=== PATIENT | female | born 1945 | race Caucasian/White ===

== ENCOUNTER → 2016-10-16 | Outpatient (CLI) | payer OTHER ==
[~2016-10-16] VITALS: Ht 172.7 cm; Wt 93.9 kg
[~2016-10-16] MED LIST: B-100 COMPLEX1 EAC1 PO; BENICAR HCT 201 EACH PO; COZAAR 25MG TAB25 MG PO; CYMBALTA PO; CYMBALTA20 MG; DILAUDID 4 MG TA4 M1 PO; ESTRACE0.5 MG PO; FEMRING1 EAC1 VG; FENTANYL PA12 MCG/H1 TP; FENTANYL PA12 MCG/HR TP; FENTANYL PA25 MCG/HR TP; FENTANYL PA50 MCG/HR TP; GABAPENTIN100 MG PO; GLUCOPHAGE1000 MG PO; LIPITOR 20 MG T20 M1; LIPITOR40 MG PO; LOVASTATIN; MULTI-VITAMIN1 EAC5 PO; NEURONTIN 300300 M1 PO; NEURONTIN600 MG PO; NORTRIPTYLINE H10 M1 PO; NORVASC5 MG PO; SIMVASTATIN40 MG PO; XANAX 0.5 MG0.5 MG PO
--- NOTE | ~2016-10-16 | HPC ---
[facility] [place] [address] PAIN MANAGEMENT CONSULTATION Name: SANDRITA RVIAS Room #: REG CHARLY FinneganKayleeAngelicaKaylee#: [id number] Admission: 10/16/16 Attend Phys: Jess Matthews MD Discharge: Date of : 46 Report #: [id number] THIS REPORT FOR: //name// CC: MELISSA Matthews LASHA COLEYWhit DATE OF SERVICE: 10/16/2016 CHIEF COMPLAINT: Pain is improved since the last surgery. FOLLOWUP HISTORY: The patient is a 71-year-old female who has been followed in the pain clinic because of chronic pain involving her lower extremities. She has had surgery to her right ankle. She has had chronic pain in this area since 1993. She has been reluctant to have surgery in the past. Now that the surgery is complete, she feels like her pain is improving. She rates it as a 1/10. She is having less problems with sleeping and activities of daily living. She did note that she stepped on it somewhat appropriate sleep and noted some increasing pain a few days ago. Overall, things are going better. At this juncture she would like to continue with her current pain medication. She will consider decreasing and weaning off the medication as she progresses. She would like to continue with the fentanyl patches 37.5 mcg q. 48 hours and with hydromorphone 4 mg p.o. q.i.d. as needed. PHYSICAL EXAMINATION: GENERAL: The patient appears quite happy. This is a significant improvement over previous visits. She feels some of the anxiety from the surgery has lessened. She rates her pain as a 1/10. She is in a wheelchair. She has a cast on the right ankle. She states that overall things are going reasonably well and she is unable to place much weight on it. VITAL SIGNS: Blood pressure 108/74, pulse 98, respiratory rate 20, room air saturation is 98%. The patient has not fallen since we saw her last. She is doing very well on her current medical regimen. IMPRESSION: Chronic foot pain, recent surgery on the right foot with a cast in place. RECOMMENDATIONS: We will continue with the patient's current medical regimen of fentanyl 37 mcg q.48 hours. Also, a script for Dilaudid 1 p.o. q.i.d. has been written. She will call us if she has any problems. We will see her within the next [address] [address] PAIN MANAGEMENT CONSULTATION Name: SANDRITA RIVAS Room #: REG CL Adriana#: [id number] Admission: 10/16/16 Attend Phys: Jess Matthews MD Discharge: Date of : 46 Report #: [id number] We would like to thank you for letting us participate in her care. We hope she continues to improve. <ELECTRONICALLY SIGNED> By: Jess Matthews MD 11/17/16 1018 [id number] [id number] Jess Matthews MD /matt
[2016-10-16 10:22] VITALS: BP 108/74
== END ==
LOC: PAIN 07:14
DX: M79.671 Pain in right foot (principal); I10 Essential (primary) hypertension; F17.210 Nicotine dependence, cigarettes, uncomplicated

== ENCOUNTER → 2017-01-06 | Outpatient (CLI) | payer OTHER ==
[~2017-01-06] VITALS: Ht 172.7 cm; Wt 102.8 kg
[~2017-01-06] MED LIST changes: +AMARYL2 MG PO; +CATAPRES0.2 M1 PO
--- NOTE | ~2017-01-06 | HPC ---
[facility] [place] [address] [place] [address] PAIN MANAGEMENT CONSULTATION Name: SANDRITA RIVAS Room #: REG CHARLY ViatlKaylee#: [id number] Admission: 01/06/17 Attend Phys: Jess Matthews MD Discharge: Date of : 46 Report #: [id number] THIS REPORT FOR: //name// CC: Bennie Pena MD The patient was seen on 01/06/[address] Vish Matthews. FOLLOWUP COMPLAINT: Here for medication renewal, the pain is about 3. FOLLOWUP HISTORY: The patient is a 71-year-old female who has been followed in the pain clinic as you recall. She suffers from chronic pain involving her lower extremities. She is still healing from her last surgery involving the foot. She continues to wear a walkin boot. She feels that her medications continue to be better. We have discussed decreasing her medications at the last visit. She is to anticipating decrease in her medications. She has some concerns over the use of our opioid medications. She is hoping that she does not go into withdrawal. PHYSICAL EXAMINATION: VITAL SIGNS: Blood pressure is 118/67, pulse 110. Respiratory rate 16, room air saturation 97%. EXTREMITIES: The patient has her right foot and walking cast with it elevated. She indicates that the pain is improving. She does experience some lancinating pains at time. She experienced at a couple of times while we were undergoing our interview. She mentally feels and looks better. She has some concerns still regarding possibility of withdrawal. Blood pressure 118/67, pulse 110, respiratory rate 16, room air saturation 97%. Height 5 feet 8 inches. Weight 102 kilograms. BMI is 34. The patient has a boot on the right foot, which is elevated. IMPRESSION: Chronic foot pain. Recent surgery on the right foot with a boot in place. RECOMMENDATIONS: We discussed treatment options with the patient. We will decrease her opioid medications slowly over the next months. We will decrease her opioid dose by 12 mcg. This will provide her with 27 mcg q. 48 hours. She will also continue with Dilaudid 1 p.o. q.i.d. p.r.n. as needed. She has been given a script for clonidine pills. 0.2 mg tablets have been dispensed. She will take 1 daily. Hopefully, these will help and lessen the chance that she would go and experience some withdrawal symptoms. She is already on medications for her blood pressure. She will decrease the amlodipine, should her blood pressure become too low. She will call us if she has any problems with her medications. [address] [address] PAIN MANAGEMENT CONSULTATION Name: SANDRITA RIVAS Room #: REG Chirag Wright#: [id number] Admission: 01/06/17 Attend Phys: Jess Matthews MD Discharge: Date of : 46 Report #: [id number] We would like to thank you for letting us participate in her care. We hope she continues to improve. By: 1341 1501 Jess Matthews MD /matt
[2017-01-06 09:55] VITALS: BP 118/67
== END ==
LOC: PAIN 07:33
DX: G89.29 Other chronic pain (principal); F17.200 Nicotine dependence, unspecified, uncomplicated

== ENCOUNTER → 2017-02-19 | Outpatient (CLI) | payer OTHER ==
[~2017-02-19] VITALS: Ht 172.7 cm; Wt 89.8 kg
--- NOTE | ~2017-02-19 | HPC ---
[facility] [place] [address] [address] PAIN MANAGEMENT CONSULTATION Name: SANDRITA RIVAS Room #: REG CHARLY FinneganKayleeAngelicaKaylee#: [id number] Admission: 02/19/17 Attend Phys: Jess Matthews MD Discharge: Date of : 46 Report #: [id number] THIS REPORT FOR: //name// CC: Bennie Matthews LASHA COLEYWhit DATE OF SERVICE: 02/19/2017 CHIEF FOLLOWUP COMPLAINT: My has leukemia. FOLLOWUP HISTORY: The patient is a 71-year-old female who has been followed in the pain clinic because of pain in her lower extremities. She has had a number of foot surgeries. She continues to wear boot on the right foot. She feels overall that things continue to improve. She has decreased her [place] usage by 12 mcg over the last 3 months. She has not had any significant withdrawal problems as a result of that. She feels that things continue to improve. She is quite troubled because of her 's new onset of acute leukemia. She states that he is undergoing treatment. He has lost some kidney function and is being placed on dialysis at this juncture. He has been in the hospital for over a month. PHYSICAL EXAMINATION: The patient is somewhat tearful. Her [id number]-[id number] is with her. She has pain in both feet. Right ankle as well as some low back discomfort. Rates her pain overall as a 2/10. She notes walking, standing can exacerbate her discomfort. Rest feet are beneficial. She has not fallen since we saw her last. Keeps her medications in a guarded area. Blood pressure 141/78, pulse 93, respiratory rate 16, room air saturation is 94%. She does feel somewhat clinically depressed. IMPRESSION: 1. Right foot pain, improving, but still in a boot. She is scheduled to see Dr. Pena in the near future. 2. has developed acute leukemia with anemia and is in [facility] undergoing treatment. He has been placed on dialysis secondary to kidney failure. RECOMMENDATIONS: We will continue with her opioid medications at they current level. 25 mcg q. 48 hours and Dilaudid 4 mg 1 p.o. q. 4-6 hours p.r.n. pain. She will call us if she has any problems with her medications. Hopefully, her continues to improve. By: 1157 [id number] Jess Matthews MD /nt
[2017-02-19 10:41] VITALS: BP 141/78
== END ==
LOC: PAIN 07:06
DX: M25.571 Pain in right ankle and joints of right foot (principal); I10 Essential (primary) hypertension; F17.200 Nicotine dependence, unspecified, uncomplicated; Z88.5 Allergy status to narcotic agent

== ENCOUNTER → 2017-04-16 | Outpatient (CLI) | payer OTHER ==
[~2017-04-16] VITALS: Ht 172.7 cm; Wt 99.4 kg
--- NOTE | ~2017-04-16 | HPC ---
[facility] [place] [address] PAIN MANAGEMENT CONSULTATION Name: SANDRITA RIVAS Room #: REG CHARLY VitalKaylee#: [id number] Admission: 04/16/17 Attend Phys: Jess Matthews MD Discharge: Date of : 46 Report #: [id number] THIS REPORT FOR: //name// CC: Bennie Pena MD DATE OF SERVICE: 04/16/2017 FOLLOWUP COMPLAINT: The pain is worsened. There is a lot going on in the family. FOLLOWUP HISTORY: The patient is a 71-year-old female who has been followed in the pain clinic because of chronic pain. She has undergone surgeries on her feet. Things were going reasonably well. She found out that her has cancer. He was at and hospitalized. She remained at the hospital many days to be with him. She has noted some worsening of her pain and discomfort. She continues to wear a boot on her right foot. She rates her pain as an 8-9 today. It had been down to 2 at the last visit. She feels that her medications were helpful. She is still quite despondent and concern regarding her 's health crisis. PHYSICAL EXAMINATION: Blood pressure 143/76, pulse 87, respiratory rate 16, room air saturation 98%, height 5 feet 8 inches, weight 99 kg, and BMI is 33. She has pain and discomfort in both feet. Right ankle is problematic as well. She continues to wear a boot. As you recall, she had a right ankle fusion in 2016. IMPRESSION: 1. Chronic foot pain, right foot surgery in 2016, left foot surgery in 2012. 2. Sadden secondary to 's recent finding of malignancy. The patient has undergone bone marrow transplant at . The patient finds fentanyl patch and Dilaudid medications helpful. RECOMMENDATIONS: We will continue with her current medical regimen. She had been decreasing her opioid use. At this juncture, she feels that she should stay at this level. She feels that her pain has worsened secondary to the stress and trauma of her 's findings of cancer. We will continue her current medical regimen. She will call us if she has any problems with her medications. We would like to thank you for letting us participate in her care. We hope she continues to improve. By: [id number] Jess Matthews MD /nt
[2017-04-16 12:49] VITALS: BP 143/76
== END | disposition home or self-care (01) ==
LOC: PAIN 06:55
DX: M25.572 Pain in left ankle and joints of left foot (principal); M25.571 Pain in right ankle and joints of right foot; G89.29 Other chronic pain; Z98.890 Other specified postprocedural states; F17.210 Nicotine dependence, cigarettes, uncomplicated; Z88.2 Allergy status to sulfonamides; Z88.8 Allergy status to other drugs, medicaments and biological substances; Z79.899 Other long term (current) drug therapy

== ENCOUNTER → 2017-07-23 | Outpatient (CLI) | payer OTHER ==
[~2017-07-23] VITALS: Ht 172.7 cm; Wt 98.9 kg
[~2017-07-23] MED LIST changes: +DURAGESIC25 MCG/HR TRANSDERM; +METHADONE HCL 110 M1 PO
--- NOTE | ~2017-07-23 | HPC ---
[facility] [place] [address] PAIN MANAGEMENT CONSULTATION Name: SANDRITA RIVAS Room #: REG [facility] Zahraa.#: [id number] Admission: 07/23/17 Attend Phys: Jess Matthews MD Discharge: Date of : 46 Report #: [id number] THIS REPORT FOR: //name// CC: MELISSA Pena MD DATE OF SERVICE: 07/23/2017 FOLLOWUP COMPLAINT: Pain has gotten significant worse over the last few months. FOLLOWUP HISTORY: The patient is a 72-year-old female who has been seen in the pain clinic and followed because of chronic pain associated with numerous foot surgeries. She feels that her pain has worsened over the last few weeks. She has had some pain, which is so severe. She has been unable to get out of bed. She is feeling better spiritually and mentally and that her 's lymphoma shows a low amount of glass sales. She is contemplating going to [place] with her to see her son who is in . She describes a deep aching pain in her right foot. Pain in the left as well. She has a new port on the left leg. She rates her pain as a 03/20/2017. She is having significant problem walking, standing and engaging in activities of daily living. She has been quite tearful. PHYSICAL EXAMINATION: Blood pressure is 130/83, pulse 95, respiratory rate 16, room air saturation 96%. Height 5 feet 8 inches, weight 218 pounds, BMI is 33. The patient states that she is having tremendous amount of pain involving the right leg as well as the left leg. She had to walk some distance. After walking home, she had pain which was quite problematic. She states that it kept her in bed for 3 days. Her corroborates her complaint and outworked expressions of pain. IMPRESSION: 1. Chronic foot pain, right and left. 2. Left foot surgery, 2012. 3. Right foot surgery, 2015. 4. ____ for . She states that his hospital bill is around 1 million dollars. He has undergone a bone marrow transplant. She feels that the pain continues to be so intense, she is unable to ambulate and participate in activities of daily living. She like to go and see her son in [place]. RECOMMENDATIONS: We discussed treatment options. We would like to increase her fentanyl patch from 25 mcg to 37 mcg. The patient states that they find it difficult to afford it financially given the other medications and bills that they have. We will have the patient start methadone 10 mg 1 p.o. every morning. She will continue with her fentanyl patch 25 mcg [place] [address] PAIN MANAGEMENT CONSULTATION Name: SANDRITA RIVAS Room #: REG CHARLY Wright#: [id number] Admission: 07/23/17 Attend Phys: Jess Matthews MD Discharge: Date of : 46 Report #: [id number] hydromorphone 4 mg 1 p.o. q.8h. p.r.n. pain. We would like to thank you for letting us participate in her care. We hope she continues to improve. Hopefully, she will have a nice vacation with her son. By: [id number] 0343 Jess Matthews MD /PMT
[2017-07-23 10:53] VITALS: BP 130/83
== END | disposition home or self-care (01) ==
LOC: PAIN 06:57
DX: M25.571 Pain in right ankle and joints of right foot (principal); M25.572 Pain in left ankle and joints of left foot; G89.29 Other chronic pain; F17.210 Nicotine dependence, cigarettes, uncomplicated; Z98.890 Other specified postprocedural states; Z88.2 Allergy status to sulfonamides; Z88.6 Allergy status to analgesic agent; Z91.041 Radiographic dye allergy status; Z79.899 Other long term (current) drug therapy

== ENCOUNTER → 2017-10-15 | Outpatient (CLI) | payer OTHER ==
[~2017-10-15] VITALS: Ht 172.7 cm; Wt 100.7 kg
[~2017-10-15] MED LIST changes: -CYMBALTA20 MG; +CYMBALTA30 MG PO; +CYMBALTA60 MG PO; +Duragesic 25 mcg Pat TRANSDERM; +PROTONIX40 M1 PO
--- NOTE | ~2017-10-15 | HPC ---
[facility] [place] [address] PAIN MANAGEMENT CONSULTATION Name: SANDRITA RIVAS Room #: REG CHARLY Adriana#: [id number] Admission: 10/15/17 Attend Phys: Jess Matthews MD Discharge: Date of : 46 Report #: [id number] THIS REPORT FOR: //name// CC: MELISSA Tapia MD DATE OF SERVICE: 10/15/2017 FOLLOWUP COMPLAINT: Things have gone better now that I have started the methadone medication. FOLLOWUP HISTORY: The patient is a 72-year-old female who has been followed in the pain clinic. As you recall, for some time because of chronic pain associated with her legs. She has had numerous surgeries over the years. Overall, things have improved since we saw her last. We increased her methadone medication. She finds that medication has been more helpful. She has found that she does not need many of the hydromorphone tablets. She has only taken a few of them since we saw her last. She saw Dr. Tapia. She states that he injected in her foot in an area in the anterior ankle. Knows that has made a significant improvement in her pain and discomfort as well. She is continuing to wear a bone stimulator on her foot. She states that she has worn out 2 of them, and she is on her third. She is walking better. Overall, she feels better in regards to her condition. She has had no complications from the medications. At some point in the near future, she is thinking about starting to wean off additional pain medication. She feels that this is a possible given that her pain has improved. At this point, she is not sure what we should. Given that the weather is so cold and there is a possibility that her pain could be exacerbated. She will consider it as spring arise. Hopefully, she will have less pain and discomfort as a result of the warmer weather and increased activities. The patient is quite tearful and depressed. States that she has been seen her psychiatrist. Her 's condition is stable at this juncture. He is doing well with his chemotherapy. After asking his doctor how would he feel, if he stopped his chemotherapy. It was told that his cancer would recur quite aggressively and probably result in his demise. The patient was very upset and depressed. It indicates that the chemotherapy cause thousands of dollars each course. The significant cost of his treatment has them wondered how long they can go ahead and continue to pay for this. That is what has been concerning her and causing her to lose sleep at night. ALLERGIES: CODEINE, SULFA, IV DYES. MEDICATIONS: Methadone 10 mg 1 p.o. daily, fentanyl patch 25 mcg every [address] [address] PAIN MANAGEMENT CONSULTATION Name: SANDRITA RIVAS [facility] [id number] Admission: 10/15/17 Attend Phys: Jess Matthews MD Discharge: Date of : 46 Report #: [id number] hours. The patient notes that these medications effectiveness rapidly drops off after 48 hours, hydromorphone 4 mg tablets. The patient is taking them sparingly at this juncture. Has found that the methadone has been quite efficacious. Amaryl 2 mg tablets, gabapentin 300 mg b.i.d., gabapentin 600 mg at bedtime, Cymbalta 20 mg, Cozaar 25 mg, Lipitor 20 mg, Norvasc 5 mg, multivitamins, esterase 0.5 mg, alprazolam 0.5 mg, metformin 1 gram b.i.d. IMPRESSION: 1. Chronic pain involving the right and left foot, treated with complex medical management using opioid therapy. 2. History of left foot surgery in 2012. 3. Right foot surgery 2015. 4. Feeling depressed secondary to 's cancer situation is becoming increasingly more expensive. The concern over being able to continue to pay for his medication is becoming a problem. The patient states that the hospital will not let him just pay a portion of the bill, but that they need to pay significant portions of it as they go along. This has caused her loose sleep. RECOMMENDATIONS: We will continue with her current medical regimen of fentanyl patches 25 mcg per day, methadone 10 mg daily has decreased her need for hydromorphone. The patient will call us if she has any problems with her medications. The good thing about her foot is that she feels that things are going best that they have for quite sometime, but the emotional upset secondary to her 's clinical condition continues to make her quite sad. We would like to thank you for letting us participate in her care. We hope she continues to improve. <ELECTRONICALLY SIGNED> By: Jess Matthews MD 10/20/17 0837 1428 0137 Jess Matthews MD /[facility]
[2017-10-15 10:25] VITALS: BP 137/68
== END ==
LOC: PAIN 06:46
DX: M25.571 Pain in right ankle and joints of right foot (principal); M25.572 Pain in left ankle and joints of left foot; F11.90 Opioid use, unspecified, uncomplicated; F32.9 Major depressive disorder, single episode, unspecified; Z98.890 Other specified postprocedural states

== ENCOUNTER → 2017-12-29 | Outpatient (CLI) | payer OTHER ==
[~2017-12-29] VITALS: Ht 172.7 cm; Wt 102.7 kg
[~2017-12-29] MED LIST changes: -Duragesic 25 mcg Pat TRANSDERM; -PROTONIX40 M1 PO
--- NOTE | ~2017-12-29 | HPC ---
[facility] [place] [address] [address] PAIN MANAGEMENT CONSULTATION Name: SANDRITA RIVAS Room #: REG CHARLY Adriana#: [id number] Admission: 12/29/17 Attend Phys: Jess Matthews MD Discharge: Date of : 46 Report #: [id number] THIS REPORT FOR: //name// CC: MELISSA Tapia MD DATE OF SERVICE: 12/29/2017 FOLLOWUP COMPLAINT: Here for my medications. I am also getting some new orthotics. FOLLOWUP HISTORY: The patient is a 72-year-old female who has been followed in the pain clinic. As you recall, she has significant problems with her feet. She has had foot surgery on both sides. She continues to have some chronic pain associated with this. She feels that her overall pain is more reasonably controlled on her current medications. Feels that the methadone is helpful. Also, finds hydromorphone effective. She continues to be quite concern regarding her 's health. As you recall, he has leukemia. They both are concerned regarding the cost of his treatment. She states that there is about $50,000 for 1 week course of treatment. She is concerned that they will have to spend themselves down to poverty level before he would be able to get her medicare assistance with the payments. She feels that her emotional status is variable. She feels that she will just take things one day at a time. The patient continues to follow up with her psychiatrist. She continues to feel depressed because of her current situation. ALLERGIES CODEINE, SULFA, IV DYES. CURRENT MEDICATIONS: Methadone 10 mg 1 p.o. daily, fentanyl patch 25 mcg q. 48 hours, Amaryl 2 mg tabs, gabapentin 300 mg b.i.d., gabapentin 600 mg at bedtime, Cymbalta 20 mg, Cozaar 25 mg, Lipitor 20 mg, Norvasc 5 mg, multivitamins, Estrace 0.5 mg, alprazolam 0.5 mg, metformin 1 gram b.i.d. PAIN CLINIC ASSESSMENT: 1. History of osteoarthritis, right lower extremity: 2. Height 5 feet 8 inches, weight 226 pounds, BMI is 34. 3. Vital signs: Blood pressure 116/74, pulse 86, respiratory rate 20, room air saturation 95%. 4. Pain intensity 0/10 today. 5. Fall risk. The patient uses a cane. She has not fallen since we saw her last. 6. The patient is [place] [address] PAIN MANAGEMENT CONSULTATION Name: SANDRITA RIVAS Room #: REG [facility]#: [id number] Admission: 12/29/17 Attend Phys: Jess Matthews MD Discharge: Date of : 46 Report #: [id number] 7. Hypertension. The patient is being treated for hypertension. 8. Opioid therapy. The patient has an opioid contract signed with our pain clinic. 9. Risk assessment tool rates 2-3, which is low on a scale. 10. Functional assessment tool. 11. Recreational drugs. The patient denies ever using recreational drugs. 12. Tobacco: The patient is a current everyday smoker. 13. Alcohol. Denies use of alcoholic beverages. PHYSICAL EXAMINATION: GENERAL: The patient is a well-developed, well-nourished female. She appears her stated age. She is alert and oriented x 3, speech is fluent. Affect is slightly depressed. HEENT: Normocephalic, atraumatic. Extraocular eye muscles intact. Nasal passages moist. No nystagmus. Conjunctivae is nonicteric. NECK: Without bruits or adenopathy. CHEST: Regular rate. ABDOMEN: Protuberant. MUSCULOSKELETAL: Upper extremities, muscle strength is judged to be 5/5 for the major muscle groups. Lower extremities 5/5. The patient has a boot on her lower extremity. She feels that this orthotic boot has improved her ability to walk. Has less pain and discomfort than previously. IMPRESSION: 1. Chronic pain involving the right and left foot. The patient is being treated with complex medical management using opioid therapy. 2. History of left foot surgery in 2012. 3. Right foot surgery 2016. 4. The depression secondary to 's leukemia status and $50,000 for each week of treatment. RECOMMENDATIONS: We discussed treatment options with the patient. We will continue with her current medications. She will call us if she has any problems with the gabapentin, Cymbalta, methadone or fentanyl patches. She is aware that long-term use of opioid medications can cause dependence. Overall, she feels that these medications are helpful and are allowing her to be more involved in activities of daily living. <ELECTRONICALLY SIGNED> By: Jess Matthews MD 01/07/18 0825 1303 0033 Jess Matthews MD /[facility]
[2017-12-29 09:42] VITALS: BP 116/74
== END ==
LOC: PAIN 06:40
DX: M79.605 Pain in left leg (principal); M79.604 Pain in right leg; G89.29 Other chronic pain; I10 Essential (primary) hypertension; Z79.891 Long term (current) use of opiate analgesic

== ENCOUNTER → 2018-04-29 | Outpatient (CLI) | payer OTHER ==
[~2018-04-29] VITALS: Ht 172.7 cm; Wt 102.5 kg
[~2018-04-29] MED LIST changes: +PROTONIX40 M1 PO
--- NOTE | ~2018-04-29 | HPC ---
[facility] [place] [address] PAIN MANAGEMENT CONSULTATION Name: SANDRITA RIVAS Room #: REG CHARLY FinneganKayleeAngelicaKaylee#: [id number] Admission: 04/29/18 Attend Phys: Jess Matthews MD Discharge: Date of : 47 Report #: [id number] THIS REPORT FOR: //name// CC: Bennie Pena MD DATE OF SERVICE: 04/29/2018 FOLLOWUP HISTORY: Here for medications. "My pain is still help by the medications, but I am having some curling of my left toes." FOLLOWUP HISTORY: The patient is a 72-year-old female who has been followed in the pain clinic because of chronic pain associated with her feet. She has had a number of surgeries. States that she is scheduled to see Dr. Pena in the near future. Has noted some curling of her toes. She states that she was told that this is secondary to diabetes. She would like to have her medications renewed. She is still somewhat emotional because of her . As you recall, he has cancer. He has been undergoing treatment. The treatment cause for his medications has been extraordinarily high. She states that they will buy his medications on credit card. Soon they will meet their deductible and the remainder of his care for that this year will be covered by his insurance. Overall, things are reasonably stable with his health at this juncture. ALLERGIES: CODEINE, SULFA, IV DYE. MEDICATIONS: Methadone 10 mg 1 p.o. daily, fentanyl patch 25 mcg q. 48 hours, Amaryl 2 mg tabs, gabapentin 300 mg b.i.d., gabapentin 600 mg at bedtime, Cymbalta 20 mg, Cozaar 25 mg, Lipitor 20 mg, Norvasc 5 mg, multivitamin, Estrace 0.5 mg, alprazolam 0.5 mg, metformin 1 gram b.i.d. PAIN CLINIC ASSESSMENT: 1. History of osteoarthritis involving her lower extremities. 2. Height 5 feet 8 inches, weight 226 pounds, BMI is 34.4. 3. Vital signs: Blood pressure 150/80, pulse 104, respiratory rate 18, room air saturation 95%. 4. Pain intensity 12/18. 5. Fall risk: The patient has not fallen in the last 3 months. 6. Blood thinner: The patient is not on the blood thinning medication. 7. History of hypertension: The patient is being treated for hypertension. 8. Opioid therapy greater than 6 weeks. The patient is on an opioid therapy regimen and gets her medication from one source. 9. Risk assessment tool, low risk for 2-3 for use of opioid medications. 10. Functional assessment tool 37/70. 11. Recreational drugs: The patient denies use of recreational drugs. [address] [address] PAIN MANAGEMENT CONSULTATION Name: SANDRITA RIVAS Room #: REG [facility]#: [id number] Admission: 04/29/18 Attend Phys: Jess Matthews MD Discharge: Date of : 47 Report #: [id number] 13. Tobacco: The patient does not smoke cigarettes. 14. Alcohol use: The patient denies frequent use of alcoholic medications. PHYSICAL EXAMINATION: GENERAL: The patient is a well-developed, well-nourished female. She appears her stated age. She is alert and oriented x 3. Speech is fluent. She is with her sister. She seems slightly upbeat today. HEENT: Normocephalic, atraumatic. Extraocular eye muscles intact. Nasal passages are moist without nystagmus. Conjunctiva is nonicteric. NECK: Without bruits or adenopathy. CHEST: Regular rate. ABDOMEN: Protuberant. MUSCULOSKELETAL: Upper extremity muscle strength is judged to be 5/5 for the major muscle groups. Lower extremity is 4/5 because of limitations of pain. The patient does have shoes on today. She has orthotics in place. She does not have a boot on. States that she is having some pain and discomfort involving the left foot. States that there is some bending of her toes and that they are kind of sliding under one another. She feels that this is causing some of the pain and discomfort, which she is experiencing. IMPRESSION: 1. Chronic pain involving her right and left foot. The patient is being treated with complex medical management using opioid therapy. 2. History of left foot surgery in 2012. 3. Right foot surgery 2015. 4. 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 RECOMMENDATIONS: We discussed treatment options with the patient. At this juncture, we will continue with her current medications. She feels that they are helpful. She is trying to continue to use the least amount of opioid medication as possible. She finds that ____ able her to be somewhat active. She is not having any problems with clouding of her sensorium. She is still working hard to continue to take care of her . This has increased her activity level and that has been a portion of why she has noted some increased pain and discomfort. A script for her medications of Dilaudid, fentanyl and methadone were renewed. We would like to thank you for letting us participate in her care. We hope she continues to improve. By: [id number] MD eleni Talbot
[2018-04-29 14:31] VITALS: BP 150/81
== END ==
LOC: PAIN 06:56
DX: M79.672 Pain in left foot (principal); M79.671 Pain in right foot; G89.29 Other chronic pain; Z79.899 Other long term (current) drug therapy

== ENCOUNTER → 2018-07-18 | Outpatient (CLI) | payer OTHER ==
[~2018-07-18] VITALS: Ht 172.7 cm; Wt 100.2 kg
[~2018-07-18] MED LIST changes: +Duragesic 25 mcg Pat TRANSDERM
--- NOTE | ~2018-07-18 | HPC ---
[facility] [place] [address] [address] PAIN MANAGEMENT CONSULTATION Name: SANDRITA RIVAS Room #: REG CHARLY VitalKaylee#: [id number] Admission: 07/18/18 Attend Phys: Jess Matthews MD Discharge: Date of : 47 Report #: [id number] THIS REPORT FOR: //name// CC: Bennie Tapia MD DATE OF SERVICE: 07/18/2018 FOLLOWUP COMPLAINT: The patient said still having some pain in my feet. The patient has right ankle and some low back pain. FOLLOWUP HISTORY: The patient is a 73-year-old female, who has been followed in the pain clinic because of chronic pain. As you recall, she has had numerous surgeries on her feet. She states that she is having some changes in her foot. She may need additional surgery on her left foot because of prominence of bone in the bottom of her feet. She is feeling somewhat relieved given that her has had another checkup. He has been found at this juncture to be in remission. She is quite delighted about this. She feels that her medications are working reasonably well. She states that she overall is feeling that things were all right. She would like to have her medications renewed. CURRENT MEDICATIONS: Methadone 10 mg 1 p.o., fentanyl patch 25 mcg q. 48 hours, Amaryl 2 mg tablets, gabapentin 300 mg b.i.d., gabapentin 600 mg at bedtime, Cymbalta 20 mg, Cozaar 25 mg, Lipitor 20 mg, Norvasc 5 mg, multivitamin, Estrace 0.5 mg, alprazolam 0.5 mg, and metformin 1 g b.i.d. ALLERGIES: THE PATIENT IS ALLERGIC TO CODEINE, SULFA, AND IV DYE. PAIN CLINIC ASSESSMENT AND PQRS: 1. History of osteoarthritis in her right and left lower extremity. 2. Rheumatoid arthritis. The patient is not being treated for rheumatoid arthritis. 3. Pain intensity is 7/10. 4. Fall risk. The patient has not fallen in the last 3 months. 5. Blood thinner. The patient is not on a blood thinning medication. 6. Hypertension. The patient has been treated for hypertension. 7. Opiate therapy greater than 6 weeks. The patient receives her medications from one source, the pain clinic. 8. Risk assessment, low risk 2/3 for opioid use. 9. Functional assessment tool, . 10. Recreational drugs. The patient denies use of recreational drugs. 11. Tobacco. Discussed use of tobacco with the patient. [address] [address] PAIN MANAGEMENT CONSULTATION Name: SANDRITA RIVAS Room #: REG [facility]#: [id number] Admission: 07/18/18 Attend Phys: Jess Matthews MD Discharge: Date of : 47 Report #: [id number] 12. Alcohol: The patient denies use of alcoholic beverages. PHYSICAL EXAMINATION: GENERAL: The patient is a well-developed and well-nourished white female. She appears her stated age. She is alert and oriented x 3. Her affect is upbeat. Height is 5 feet 8 inches, weight is 221 pounds, and BMI is 33.6. VITAL SIGNS: Blood pressure is 143/68, pulse is 101, respiratory rate is 16, room air saturation is 94%, and temperature is 98. HEENT: Normocephalic, atraumatic. Extraocular eye muscles intact. NECK: Without bruits or adenopathy. CHEST: Clear to auscultation. HEART: Regular rate. ABDOMEN: Protuberant. Bowel sounds present. MUSCULOSKELETAL: Without significant scoliosis, kyphosis, or lordosis. Lower extremity strength is judged to be 5/5 in the upper extremity. The patient does have some pain and discomfort in her feet, left and right. She states that there is some pressure on the bottom of her feet secondary to some bone formation. IMPRESSION: 1. Chronic pain involving the right as well as the left foot. The patient is being treated with complex medical management using opioid therapy to help with her pain. 2. History of left foot surgery in 2012. 3. Right foot surgery in 2015. 4. Improved psychological outlook secondary to the patient's leukemia, being in remission. RECOMMENDATIONS: We have discussed treatment options with the patient. We have renewed her medications. She will call us if she has any problems. She feels that her medications overall are helpful. She feels that she is using less of the Dilaudid medications. She states that she has not picked up a script since 03/2018. She will call us if she has any concerns. We would like to thank you for letting us to participate in her care. A script for her medications of methadone 10 mg 1 daily, Dilaudid 4 mg, and Duragesic patch 25 mcg q. 48 hours have been written. <ELECTRONICALLY SIGNED> By: Jess Matthews MD 07/25/18 [id number] Jess Matthews MD /EARLINE
[2018-07-18 08:32] VITALS: BP 143/68
== END ==
LOC: PAIN 06:57
DX: M79.672 Pain in left foot (principal); M79.671 Pain in right foot; G89.29 Other chronic pain; M25.571 Pain in right ankle and joints of right foot; M24.671 Ankylosis, right ankle; F17.210 Nicotine dependence, cigarettes, uncomplicated; M19.071 Primary osteoarthritis, right ankle and foot; Z79.891 Long term (current) use of opiate analgesic; Z79.899 Other long term (current) drug therapy

== ENCOUNTER → 2018-10-21 | Outpatient (CLI) | payer OTHER ==
[~2018-10-21] MED LIST changes: +DURAGESIC1 EAC4 TOP; +DURAGESIC1 EAC4 TRANSDERM
--- NOTE | ~2018-10-21 | HPC ---
[facility] [place] [address] [place] [address] PAIN MANAGEMENT CONSULTATION Name: SANDRITA RIVAS Room #: REG CHARLY FinneganKayleeAngelicaKaylee#: [id number] Admission: 10/21/18 Attend Phys: Jess Matthews MD Discharge: Date of : 47 Report #: [id number] THIS REPORT FOR: //name// CC: Bennie Pena MD DATE OF SERVICE: 10/21/2018 PRIMARY CARE PHYSICIAN: Bennie Stephens MD and Harjeet Pena MD CHIEF COMPLAINT: "I fell at home. I fractured my nose and had lots of pain since that time." HISTORY: The patient is a 73-year-old female who has been followed in the pain clinic for quite a time. As you recall, she has significant problems with her lower extremities. She has had numerous surgeries. States that she fell while carrying an item and walking with her cell phone. She fell and hit the right upper eyebrow area. States that she fractured her nose. Had significant amount of bleeding. She was taken to where she underwent stitching of the wound above her head over her eye. Notes that her pain has worsened today. This has been one of the worst days of the year as far as weather. Threatening snows, threatening changes in temperature. The patient has noted worsening of her pain as a result. She finds that her medications continue to be helpful, but not as helpful as they have been. She is still concerned about her , Vin. At this juncture, he is receiving treatment at [facility] for his cancer. This has really been difficult for her. He recently underwent cancer therapy. He is receiving cancer therapy every 28 days. She feels that with his medications he has had some personality changes. States that he has much less calm. Feels that she is walking on eggshells. Does not feel that she is getting as much family support from the children. Overall, this has caused her to be quite stressed. ALLERGIES: THE PATIENT IS ALLERGIC TO CODEINE, SULFA, IV DYE. CURRENT MEDICATIONS: Methadone 10 mg 1 p.o., fentanyl patches 25 mg q. 48 hours, Amaryl 2 tablets, gabapentin 300 mg b.i.d., gabapentin 600 mg at bedtime, Cymbalta 20 mg, Cozaar 25 mg, Lipitor 20 mg, Norvasc 5 mg, multivitamin, Estrace 0.5 mg, alprazolam 0.5 mg, metformin 1 g b.i.d. Again, the medicines we should have hydromorphone 4 mg tablets 4 tablets daily. PAIN CLINIC ASSESSMENT/PQRS: 1. History of osteoarthritis. The patient has some arthritic changes in her feet, left and right. 2. Rheumatoid arthritis. The patient is not being treated for rheumatoid arthritis. [address] [address] PAIN MANAGEMENT CONSULTATION Name: EVELYNSANDRITA J [id number] Admission: 10/21/18 Attend Phys: Jess Matthews MD Discharge: Date of : 47 Report #: [id number] 3. Pain intensity 8/10. 4. Height 5 feet 8 inches, weight 222 pounds, BMI is 33.6. 5. Vital signs: Blood pressure 133/66, pulse 94, respiratory rate 18, room air saturation 94%. 6. Pain intensity 8/10. 7. Fall history. The patient fell and was seen at [facility] where she underwent surgery and closure stitches above her right eye as well as fractured nose. 8. Blood thinner. The patient is not on a blood thinning medication. 9. Hypertension. The patient is being treated for hypertension. 10. Opioid greater than 6 weeks. The patient receives her medication from one source, pain clinic. 11. Risk assessment tool 2-3, low risk for opioid use. 12. Functional assessment tool 37/70. 13. Recreational drug use. The patient denies use of recreational drugs. 14. Tobacco: The patient has smoked 1 pack of cigarettes per day, smoked for 51 years. Again, we discussed risks and benefits of smoking and benefits of smoking cessation with the patient 15. Alcohol: The patient denies use of alcoholic beverages. PHYSICAL EXAMINATION: GENERAL: The patient is a well-developed, well-nourished white female. She is visibly distraught today. She was crying during the interview. States that her pain is quite problematic. HEENT: Normocephalic, atraumatic. Extraocular eye muscles intact. The patient has a well-healed ____ scar over the right eye. The patient states that her nose has bent a little bit to the left because of the fracture. NECK: Without bruits or adenopathy. HEART: Regular rate. ABDOMEN: Protuberant, bowel sounds. MUSCULOSKELETAL: Without significant scoliosis, kyphosis or lordosis. Upper extremity muscle strength judged to be 5-/5 for the major muscle groups in the upper extremity. Lower extremity, the patient complains of pain and discomfort in her left as well as in her right foot. She has pain in her feet. States that the pain is 8/10. Continues to have shoes with support. IMPRESSION: 1. Chronic pain involving the left and right foot. The patient is being treated with complex medical management. 2. History of foot surgery, left in 2012 and foot surgery, right in 2016. 3. Increase distress because of her current situation. The patient states that she has seen her psychiatrist. Only concerned about her 's leukemia. He is in remission at this time. Continues to take therapy. The patient is unable to take chemotherapy and is taking a type form of antibiotic therapy per his 's report. [facility] [address] [place] [address] PAIN MANAGEMENT CONSULTATION Name: SANDRITA RIVAS [facility] [id number] Admission: 10/21/18 Attend Phys: Jess Matthews MD Discharge: Date of : 47 Report #: [id number] RECOMMENDATIONS: Again the patient feels that at this point, her pain is quite problematic as she describes it as the most stress that she has been in years. Really concerned about her 's behavior, which seems to have changed somewhat since his chemotherapy. She states that she has continued to follow up with her psychiatrist. At this point, feels that her pain in her lower extremities are overwhelming. Feels that the use of hydromorphone 4 mg tablet might be of benefit. At this juncture, we will consider the addition of 1 hydrocodone medication. She will take 1 tablet q. 4 hours p.r.n. for pain. I spoke with the patient for 20 minutes regarding her situation. Hopefully, she will feel more relaxed in the coming days. We would like to thank you for letting us participate in her care. We hope she continues to improve. A script for all of her medications have been rewritten. By: [id number] Jess Matthews MD /EARLINE
[2018-10-21 11:13] VITALS: BP 133/66
--- NOTE | 2018-10-21 11:36 | NUR ---
Pain Clinic Assessment: 1. History of Osteoarthritis: Right Lower Extremity History of Rheumatoid Arthritis: Not Applicable 2. Height: 5 ft. 8 in. 172.7 cm. Weight: lb. oz. kg. Patient's BMI: 3. Vital Signs: BP: 133/66 Pulse: 94 Resp: 18 Temp: 02 Sat: 94 ECG Mon: 4. Pain Intensity: 8 5. Fall Risk: Dizziness: Y Needs help standing or walking: Y Fallen in the last 3 months: Y Fall risk comments: 6. Patient on Blood Thinner: None 7. History of Hypertension: Y 8. Opioid Therapy greater than 6 weeks: Y Opiate Contract Signed: 03/30/16 9. Risk Assessment Tool Provided: LOW RISK 2/3 10. Functional Assessment Tool: 11. Recreational Drug Use: Never Drug Type: Tobacco Use: Current Every Day Smoker Tobacco Type: Cigarettes Amount or Packs/day: 1 ppd How Many Years: 51 Alcohol Use: No Frequency: Quant:
== END ==
LOC: PAIN 06:52
DX: M79.671 Pain in right foot (principal); M79.672 Pain in left foot; G89.29 Other chronic pain; Z79.899 Other long term (current) drug therapy

== ENCOUNTER → 2019-01-25 | Outpatient (CLI) | payer OTHER ==
[~2019-01-25] VITALS: Ht 172.7 cm; Wt 105.1 kg
--- NOTE | ~2019-01-25 | HPC ---
[facility] [place] [address] [place] [address] PAIN MANAGEMENT CONSULTATION Name: SANDRITA RIVAS Room #: REG [facility] ZahraaKaylee#: [id number] Admission: 01/25/19 ������������������ Attend Phys: Jess Matthews MD Discharge: ������������������ Date of : 47 Report #: [id number] THIS REPORT FOR: //name// CC: Bennie Pena MD DATE OF SERVICE: 01/25/2019 FOLLOWUP COMPLAINT: The pain is very bad today. FOLLOWUP HISTORY: The patient is a 73-year-old patient who has been followed in the pain clinic. As you recall, she has had significant problems with her feet. She has had numerous surgeries. Continues to have pain at this juncture. She has been using complex medication management, which includes opioid medications. She has found them to be efficacious at times. Then, her pain usually waxes and wanes. At this juncture, it is at a level that is more problematic. She states that may be associated with the change in the weather pattern. She and her son have had words. She is disappointed. She states that he had told her that she was not a good mother. This is further exacerbated her pain. ALLERGIES: CODEINE, SULFA, IV DYE. CURRENT MEDICATIONS: Methadone 10 mg, fentanyl patches 25 mcg q. 72 hours, Amaryl 2 tablets, gabapentin 300 mg b.i.d., gabapentin 600 mg at bedtime, Cymbalta 20 mg, Cozaar 25 mg, Lipitor 20 mg, Norvasc 5 mg, multivitamin, Estrace 0.5 mg, alprazolam 0.5 mg, metformin 1 g b.i.d., hydromorphone 4 mg. PAIN CLINIC ASSESSMENT AND PQRS: 1. History of osteoarthritis. The patient has arthritic changes in her feet. Has arthritic changes on the left as well as right. The patient is not being treated for rheumatoid arthritis. 2. Pain intensity 05/20. 3. Fall history. The patient has not fallen in the last 3 months. 4. Height 5 feet 8 inches, weight 231 pounds, BMI is 35.3. 5. Blood thinner. The patient is not on a blood thinning medication. 6. Hypertension. The patient has been treated for hypertension. 7. Opioids greater than 6 weeks. The patient receives her medications through the pain clinic. 8. Risk assessment tool, low risk 2-3. 9. Functional assessment tool, 37/70. 10. Recreational drug use. The patient denies use of recreational drugs. 11. Tobacco: The patient smokes 10 cigarettes and has smoked for a number of years. Discussed the benefits of smoking cessation. 12. Alcohol: The patient denies use of alcoholic beverages. [facility] [address] [place] [address] PAIN MANAGEMENT CONSULTATION Name: SANDRITA RIVAS Room #: REG CL Adriana#: [id number] Admission: 01/25/19 ������������������ Attend Phys: eJss Matthews MD Discharge: ������������������ Date of : 47 Report #: [id number] PHYSICAL EXAMINATION: GENERAL: The patient is a well-developed, well-nourished white female. She is visibly distraught today. She is crying during the interview. She states that she has to leave and is unable to stay for the entirety of her visit secondary to need to be in [place], [place]. HEENT: Normocephalic, atraumatic. Extraocular eye muscles intact. Sclerae nonicteric. Mucous membrane moist. NECK: Without bruits or adenopathy. HEART: Regular rate. ABDOMEN: Protuberant. Bowel sounds present. MUSCULOSKELETAL: Without significant scoliosis, kyphosis or lordosis. Upper extremity muscle strength 5-/5 for the major muscle groups in the upper extremity. The patient complains of pain and discomfort, which is 8/10 involving her feet. This is with her current medication. IMPRESSION: 1. Chronic pain involving left and right foot. The patient was treated with complex medical management using opioid medication. 2. History of foot surgery, left, 2012, right 2015. 3. Increased distress in her situation secondary to her 's leukemia. RECOMMENDATIONS: We discussed treatment options with the patient. At this juncture, we will continue with her medications. We will try to make adjustments to her medications. We explained that opioid medications can become less effective as time goes by secondary to development of tolerance. May need to undergo a decrease in her medications to improve their efficacy in the future. We would like to thank you for letting us participate in her care. A script for her medications have been rewritten. ��������������������������������������������� ���������������������������������������� By: ��������������������������������������������� [id number] Jess Matthews MD /EARLINE
[2019-01-25 13:23] VITALS: BP 108/59
--- NOTE | 2019-01-25 13:35 | NUR ---
Pain Clinic Assessment: 1. History of Osteoarthritis: Right Lower Extremity History of Rheumatoid Arthritis: Not Applicable 2. Height: 5 ft. 8 in. 172.7 cm. Weight: 231.8 lb. oz. 105.144 kg. Patient's BMI: 35.3 3. Vital Signs: BP: 108/59 Pulse: 86 Resp: 16 Temp: 02 Sat: 97 ECG Mon: 4. Pain Intensity: 8 5. Fall Risk: Dizziness: Y Needs help standing or walking: Y Fallen in the last 3 months: N Fall risk comments: 6. Patient on Blood Thinner: None 7. History of Hypertension: Y 8. Opioid Therapy greater than 6 weeks: Y Opiate Contract Signed: 03/30/16 9. Risk Assessment Tool Provided: LOW RISK 2/3 10. Functional Assessment Tool: 11. Recreational Drug Use: Never Drug Type: Tobacco Use: Current Every Day Smoker Tobacco Type: Cigarettes Amount or Packs/day: 10 CIGS How Many Years: Alcohol Use: No Frequency: Quant:
== END ==
LOC: PAIN 07:14
DX: M79.671 Pain in right foot (principal); M79.672 Pain in left foot; G89.29 Other chronic pain; Z79.891 Long term (current) use of opiate analgesic

== ENCOUNTER → 2019-04-19 | Outpatient (CLI) | payer OTHER ==
[~2019-04-19] VITALS: Ht 172.7 cm; Wt 104.6 kg
[~2019-04-19] MED LIST changes: +DEXILANT60 MG PO; +RANITIDINE HCL300 MG PO
--- NOTE | ~2019-04-19 | HPC ---
[facility] [place] [address] PAIN MANAGEMENT CONSULTATION Name: SANDRITA RIVAS Room #: REG CHARLY FinneganKayleeAngelicaKaylee#: [id number] Admission: 04/19/19 ������������������ Attend Phys: Jess Matthews MD Discharge: ������������������ Date of : 47 Report #: [id number] THIS REPORT FOR: //name// CC: Bennie Tapia MD DATE OF SERVICE: 04/19/2019 FOLLOWUP COMPLAINT: "I am still having a lot of pain, the medications are helpful." HISTORY: The patient is a 73-year-old female who has been followed in the pain clinic. She continues to have pain, which is quite problematic. She has had numerous surgeries in her feet. She has been having some problems in the calf. States that she has had some areas which are not healing well. Certain treatment modalities are being performed to help her heal. She is being followed by the Wound Clinic. She feels that she has a lot of stress at this juncture. Her is continue with chemotherapy type medications. She has been evaluated per her report by the vascular doctor. It does not seem to be a vascular problem at this juncture. She is being followed in the wound clinic because of difficulty in healing of the wounds in her right anterior calf. She is having problems with gastroesophageal reflux. States that she is contemplating surgery to decrease her regurgitation problem. States that she has had food come up in the back of her throat. She does not feel that she can undergo this surgery at this point given her 's serious condition. ALLERGIES: THE PATIENT IS ALLERGIC TO CODEINE, SULFA AND IV DYE. CURRENT MEDICATIONS: Methadone 10 mg 1 p.o. daily, fentanyl patches 25 mcg every 48 hours, Amaryl 2 tablets, gabapentin 300 mg b.i.d., gabapentin 600 mg at bedtime, Cymbalta 20 mg, Cozaar 25 mg, Lipitor 20 mg, Norvasc 5 mg, multivitamin, Estrace 0.5 mg, alprazolam 0.5 mg, metformin 1 mg b.i.d., hydromorphone 4 mg tablets up to 5 tablets per day. PAIN CLINIC ASSESSMENT/PQRS: 1. History of osteoarthritis. The patient has some arthritic changes in her feet, left and right. 2. Rheumatoid arthritis. 3. The patient is not being treated for rheumatoid arthritis. 4. Pain intensity 01/18. Height 5 feet 8 inches, weight 230 pounds, BMI is 35.1. 5. VITAL SIGNS: Blood pressure 140/68, pulse 94, respiratory rate 18, room air saturation 97%. 6. Fall risk. The patient has not fallen in the last 3 months. 7. Blood thinner: The patient is not on a blood thinning medication. [facility] [address] [place] [address] PAIN MANAGEMENT CONSULTATION Name: SVETLANA RIVASReilly Servin Room #: REG Chirag Wright#: [id number] Admission: 04/19/19 ������������������ Attend Phys: Jess Matthews MD Discharge: ������������������ Date of : 47 Report #: [id number] 8. Hypertension. The patient has been treated for hypertension. 9. Opioids greater than 6 weeks. The [facility]. 10. Risk assessment tool, moderate for opioid use. 11. Functional assessment tool 37/70. 12. Recreational drug use. The patient denies use of recreational drugs. 13. Tobacco: The patient smokes 10 cigarettes per day. 14. Alcohol. The patient denies use of alcoholic beverages on a regular basis. PHYSICAL EXAMINATION: GENERAL: The patient is a well-developed, well-nourished white female. She is visibly distraught today. She continues to cry. Feels that there are so many stressors on her at this juncture, it is hard to relax. HEAD, EYES, EARS, NOSE, AND THROAT: Normocephalic, atraumatic. Extraocular eye muscles intact. Sclerae nonicteric. Mucous membranes moist. NECK: Without bruits or adenopathy. HEART: Regular rate. ABDOMEN: Protuberant. Bowel sounds present. MUSCULOSKELETAL: Without significant scoliosis, kyphosis or lordosis. EXTREMITIES: Upper extremity strength judged to be 5-/5 for the major muscle groups. Lower extremity, the patient's muscle strength 4+/5. The patient walks with a somewhat antalgic gait. Walks with support of her holding her hand. The patient has footwear as well as support stockings on. Has some areas that she states have special packing from the wound care clinic. IMPRESSION: Chronic pain, left and right foot. The patient complex medical regimen using opioid medications. We will discuss at length with the patient is 30 minutes use of opioid medications and other medications to help control her pain. At this point, we will have the patient increase the amount of gabapentin she is. She will take an additional gabapentin tablet at night for a total of 600 mg evening, 600 mg morning and 300 mg midday. She will monitor this to make sure she is not having a problem with medication. The patient continues to be followed by her psychiatrist. She continues to have concern regarding her 's leukemia. He continues with medication, is somewhat happy that a portion of his medication is being donated by [employer]. This decreased his copay by about $2500 a month. We would recommend the patient at this juncture continue with her medication. She take her medications only as prescribed. Hopefully, her pain on the lower extremity will improve as her legs heal. Again, we would like to keep the patient the least amount of opioid medications possible. She is aware that long-term use of opioid medications can be problematic. We have discussed that 72,000 people as a result of both overdose seen in the medication. She keeps her medications in a guarded environment. She will call us if she has any concerns. [address] [address] PAIN MANAGEMENT CONSULTATION Name: EVELYNHASMUKHSANDRITA J Room #: REG [facility]#: [id number] Admission: 04/19/19 ������������������ Attend Phys: Jess Matthews MD Discharge: ������������������ Date of : 47 Report #: [id number] We would like to thank you for letting us to participate in her care. We hope she continues to improve. ��������������������������������������������� ���������������������������������������� By: ��������������������������������������������� [id number] Jess Matthews MD /EARLINE
[2019-04-19 11:20] VITALS: BP 140/68
--- NOTE | 2019-04-19 11:36 | NUR ---
Pain Clinic Assessment: 1. History of Osteoarthritis: Right Lower Extremity History of Rheumatoid Arthritis: Not Applicable 2. Height: 5 ft. 8 in. 172.7 cm. Weight: 230.6 lb. oz. 104.600 kg. Patient's BMI: 35.1 3. Vital Signs: BP: 140/68 Pulse: 94 Resp: 18 Temp: 02 Sat: 97 ECG Mon: 4. Pain Intensity: 4 5. Fall Risk: Dizziness: N Needs help standing or walking: Y Fallen in the last 3 months: N Fall risk comments: 6. Patient on Blood Thinner: None 7. History of Hypertension: Y 8. Opioid Therapy greater than 6 weeks: Y Opiate Contract Signed: 03/30/16 9. Risk Assessment Tool Provided: LOW RISK 2/3 10. Functional Assessment Tool: 11. Recreational Drug Use: Never Drug Type: Tobacco Use: Current Every Day Smoker Tobacco Type: Cigarettes Amount or Packs/day: 10 CIGS How Many Years: Alcohol Use: No Frequency: Quant:
== END ==
LOC: PAIN 07:02
DX: M79.671 Pain in right foot (principal); M79.672 Pain in left foot; G89.29 Other chronic pain; Z79.899 Other long term (current) drug therapy; Z79.891 Long term (current) use of opiate analgesic

== ENCOUNTER → 2019-07-14 | Outpatient (CLI) | payer OTHER ==
[~2019-07-14] VITALS: Ht 172.7 cm; Wt 99.8 kg
[~2019-07-14] MED LIST changes: +DEXILANT30 MG PO; +NARCAN4 MG SPRAY; +OMEPRAZOLE 20 M20 M1 PO
[2019-07-14 10:39] VITALS: BP 121/64
--- NOTE | 2019-07-14 11:09 | NUR ---
Pain Clinic Assessment: 1. History of Osteoarthritis: RIGHT ANKLE LEFT ANKLE History of Rheumatoid Arthritis: Not Applicable 2. Height: 5 ft. 8 in. 172.7 cm. Weight: 220.0 lb. oz. 99.792 kg. Patient's BMI: 33.5 3. Vital Signs: BP: 121/64 Pulse: 98 Resp: 16 Temp: 02 Sat: ECG Mon: 4. Pain Intensity: 3-TODAY, 5-DAILY AVG 5. Fall Risk: Dizziness: N Needs help standing or walking: N Fallen in the last 3 months: N Fall risk comments: 6. Patient on Blood Thinner: None 7. History of Hypertension: Y 8. Opioid Therapy greater than 6 weeks: Y Opiate Contract Signed: 03/30/16 9. Risk Assessment Tool Provided: LOW RISK 2/3 10. Functional Assessment Tool: 11. Recreational Drug Use: Never Drug Type: Tobacco Use: Current Every Day Smoker Tobacco Type: Amount or Packs/day: How Many Years: Alcohol Use: No Frequency: Quant:
--- NOTE | 2019-08-18 08:25 | HPC ---
[facility] [place] [address] PAIN MANAGEMENT CONSULTATION Name: SANDRITA RIVAS Room #: REG CHARLY FinneganKayleeAngelicaKaylee#: [id number] Admission: 07/14/19 Attend Phys: Jess Matthews MD Discharge: Date of : 47 Report #: [id number] THIS REPORT FOR: //name// CC: Bennie Pena MD DATE OF SERVICE: 08/14/2019 CHIEF COMPLAINT: "I am still having a whole lot of pain." HISTORY: The patient is a 74-year-old female who has been followed in the Pain Clinic. As you recall, she has had numerous surgeries. Pain in her feet. Continues to be quite driving force. She rates her pain as a 3 today and on average is about 5/10. She has returned for renewal of her medications. Notes that she is having some cramping sensation down in her toes. This can be quite problematic when she is trying to go to sleep. This pain and discomfort causes her to feel as though she would scream out. Notes that her pain becomes more problematic with too much activity and prolonged walking. States that she oftentimes gives into the pain by decreasing her level of activity. Pain is involved in both feet. At this point, she feels like her right ankle is more problematic at times, but today it feels more stable. Left ankle is causing a very high level of pain intensity. As you may recall, she has had a number of surgeries. Had surgeries dating back to 12/2012. Had an ankle fusion on the right side in 2016. Describes the pain as a spasm, sharp, shooting, constant, lancinating, aching, and throbbing pain. Notes that her medications are helpful. They enable her to engage in activities, she would not be able to without their use. Rest and elevation of her feet can be helpful. She is still concerned about her . He has been treated for his lymphoma. ALLERGIES: THE PATIENT IS ALLERGIC TO CODEINE, SULFA, AND IV DYE. CURRENT MEDICATIONS: Methadone 10 mg daily, fentanyl 25 mcg patches every 48 hours, Amaryl 2 tablets, gabapentin 300 mg b.i.d., gabapentin 600 mg at bedtime, Cymbalta 20 mg, Cozaar 25 mg, Lipitor 20 mg, Norvasc 5 mg, multivitamins, Estrace 0.5 mg, alprazolam 0.5 mg, metformin 1 mg b.i.d., hydromorphone 4 tablets to 5 tablets daily p.r.n. to help when the pain becomes significantly excruciating. PAIN CLINIC ASSESSMENT/PQRS: 1. History of osteoarthritis. The patient has arthritic changes in her feet on the left and right side. 2. The patient is not being treated for rheumatoid arthritis. 3. Pain intensity 3/10 today, can average 5/10. 4. Height 5 feet 8 inches, weight 220 pounds, and BMI is 33.5. [address] [address] PAIN MANAGEMENT CONSULTATION Name: SANDRITA RIVAS Room #: REG CHARLY Wright#: [id number] Admission: 07/14/19 Attend Phys: Jess Matthews MD Discharge: Date of : 47 Report #: [id number] 3. Vital signs: Blood pressure 121/64, pulse 98, respiratory rate 16, and room air saturation is 95. 5. Fall risk. The patient has not fallen in the last 3 months. 6. Blood thinner. The patient is not on a blood thinning medication. 7. Hypertension. The patient is being treated for hypertension. 8. Opiate therapy greater than 6 weeks. The patient is moderate for opioid use. 9. Functional assessment tool, 37/70. 10. Recreational drug use: The patient denies. 11. Tobacco: The patient smokes half pack of cigarettes per day. Discussed the benefits of smoking cessation. 12. Alcohol. The patient denies use of alcoholic beverages on a regular basis. PHYSICAL EXAMINATION: GENERAL: The patient is a well-developed, well-nourished white female. She is still concerned about her 's situation. She is saddened because of his problems with lymphoma. She is also saddened due to her chronic pain. HEENT: Normocephalic, atraumatic. Extraocular eye muscles intact. Sclerae nonicteric. Mucous membranes are moist. NECK: Without adenopathy or JVD. HEART: Regular rate. ABDOMEN: Nontender, protuberant. Bowel sounds present. MUSCULOSKELETAL: Upper extremity muscle strength is judged to be 5/5 for the major muscle groups in the upper extremity. The patient has muscle strength in the lower extremity as 4+/5. The patient walks with an antalgic gait. Complains of pain and discomfort in both left and right feet. IMPRESSION: Chronic pain, left and right feet, treated with complex medical regimens of opioids. RECOMMENDATIONS: Again, we had a lengthy discussion with the patient for over 30 minutes regarding the options. The patient feels that without her opioid medication, she was ceased functioning. States that she has taken the medication as prescribed. We again spoke with her in regards to the limitations of opioid medications. We discussed the problems with development of tolerance. At this point, we will continue with her current medical regimen. She will continue to follow up with her psychiatrist. She states that she has no thoughts of harming herself. Still concerned regarding her 's leukemia. We were again providing the patient with medications, so that she can stay as functional as possible. At this juncture, I do not know of any surgeries that would significantly improve her condition. The patient states she keeps her medications in a guarded area. Again, we explained to her that over 72,000 people last year as a result of overdosing of medications. We would expect the patient to stay as active as possible. She will call us if [address] [address] PAIN MANAGEMENT CONSULTATION Name: EVELYNSANDRITA J [facility]: [facility] [id number] Admission: 07/14/19 Attend Phys: Jess Matthews MD Discharge: Date of : 47 Report #: [id number] she has any concerns. Again, our desire is to keep the patient on the least amount of medication, which would help her with her pain control as well as keep her functional. A renewal of her medications of Dilaudid 4 mg 150 tablets, methadone 10 mg 1 p.o. daily, fentanyl patches, 25 mcg and the patient has been provided with a Narcan spray intranasal should she develop problems with her opioids. We would like to thank you for letting us participate in her care. We hope she continues to improve. <ELECTRONICALLY SIGNED> By: Jess Matthews MD 08/18/19 0825 [id number] Jess Matthews MD /matt
== END ==
LOC: PAIN 06:53
DX: G89.29 Other chronic pain (principal); Z79.891 Long term (current) use of opiate analgesic

== ENCOUNTER → 2019-09-22 | Outpatient (CLI) | payer OTHER ==
[~2019-09-22] VITALS: Ht 172.7 cm; Wt 99.4 kg
--- NOTE | ~2019-09-22 | HPC ---
[facility] [place] [address] [address] PAIN MANAGEMENT CONSULTATION Name: SANDRITA RIVAS Room #: REG CHARLY Adriana#: [id number] Admission: 09/22/19 Attend Phys: Jess Matthews MD Discharge: Date of : 47 Report #: [id number] THIS REPORT FOR: //name// CC: Bennie Tapia MD DATE OF SERVICE: 09/22/2019 CHIEF COMPLAINT: "Still having a lot of pain in my feet and my is not doing well." HISTORY: The patient is a 74-year-old female who has been followed in the pain clinic. As you may recall, she has had years of chronic pain. Continues to have pain in her left and right foot. She has had surgery on both. She continues to find that her pain is quite problematic. Feels that her medications are helpful. She feels that her 's health has continued to decline. He is not eating much. He has been seen by the physician. He has had a fever. There is some question as to what is going on with him and his health. As you recall, he has a lymphoma type disease. She has been treated with chemotherapy. ALLERGIES: CODEINE, SULFA, IV DYE. CURRENT MEDICATIONS: Methadone 10 mg daily, fentanyl 25 mcg patches q. 48 hours, hydromorphone for breakthrough pain 4 mg p.o. q.4-6 hours p.r.n., Amaryl 2 tablets, gabapentin 300 mg b.i.d. 600 mg at bedtime, Cymbalta 20 mg, Cozaar 25 mg, Lipitor 20 mg, Norvasc 5 mg, multivitamins, Estrace 0.5 mg, alprazolam 0.5 mg, metformin 1 mg b.i.d. PAIN CLINIC ASSESSMENT AND PQRS: 1. The patient has some arthritic changes involving her feet, left and right. The patient is not being treated for rheumatoid arthritis. 2. Height 5 feet 8 inches, weight 219 pounds, BMI is 33.3. 3. Vital Signs: Blood pressure 143/63, pulse 101, respiratory rate 18, room air saturation 94%. 4. Pain intensity 05/20. 5. Fall risk. The patient has not fallen in the last 3 months. 6. Blood thinner. The patient is not on a blood thinning medication. 7. Hypertension. The patient is being treated for hypertension. 8. Opioids greater than 6 weeks. The [facility]. 9. Opioid risk moderate. 10. Functional assessment tool, . 11. Recreational drug use: The patient denies. [address] [address] PAIN MANAGEMENT CONSULTATION Name: SANDRITA RIVAS Room #: REG [facility] Adriana#: [id number] Admission: 09/22/19 Attend Phys: Jess Matthews MD Discharge: Date of : 47 Report #: [id number] 12. Tobacco: The patient is a current every day smoker. 13. Alcohol. The patient denies use of alcoholic beverages. PHYSICAL EXAMINATION: GENERAL: The patient is a well-developed, well-nourished white female. She is considerably concerned about her 's health. She continues to cry throughout the session. She states that her 's lymphoma seems to be worse. He has been showing some signs of a fever. Feels that her doctor may have be giving up on him. This is causing her a great amount of consternation. HEENT: Normocephalic, atraumatic. Eyes are somewhat red from crying. NECK: Without adenopathy or JVD. HEART: Regular rate. ABDOMEN: Nontender. Protuberant. EXTREMITIES: Upper extremity muscle strength judged to be 5/5 for the major muscle groups in the upper extremity. The patient has pain and discomfort in lower portion with muscle strength 5-/5. The patient walks with antalgic gait. Complains of pain and discomfort in her left as well as in her right foot. She has on special shoes. IMPRESSION: 1. Chronic pain involving the left and right foot, treated with complex medical regimen. 2. The patient's 's lymphoma condition varying and causing her great consternation. 3. Depression. The patient continues to follow with her psychiatrist. RECOMMENDATIONS: We will continue with the patient's current medical regimen. We have on each occasion ____ use of opioid medications. At this juncture, the patient feels that her ____ with all of the problems that she is having that she feels that she needs to continue with her current medical regimen at its current level. A script for her medications have been rewritten. A script for fentanyl patches 25 mg one p.o. q.48 hours has been written. The patient will also continue with methadone 10 mg 1 daily. The patient will continue with hydromorphone p.r.n. as needed q. 4-6 hours. We would like to thank you for letting us participate in her care. We hope she continues to improve. By: [id number] Jess Matthews MD /nt
[2019-09-22 13:27] VITALS: BP 134/63
--- NOTE | 2019-09-22 14:10 | NUR ---
Pain Clinic Assessment: 1. History of Osteoarthritis: RIGHT ANKLE LEFT ANKLE History of Rheumatoid Arthritis: Not Applicable 2. Height: 5 ft. 8 in. 172.7 cm. Weight: 219.2 lb. oz. 99.429 kg. Patient's BMI: 33.3 3. Vital Signs: BP: 134/63 Pulse: 101 Resp: 18 Temp: 02 Sat: 94 ECG Mon: 4. Pain Intensity: 8 5. Fall Risk: Dizziness: Y Needs help standing or walking: Y Fallen in the last 3 months: N Fall risk comments: 6. Patient on Blood Thinner: None 7. History of Hypertension: Y 8. Opioid Therapy greater than 6 weeks: Y Opiate Contract Signed: 03/30/16 9. Risk Assessment Tool Provided: LOW RISK 2/3 10. Functional Assessment Tool: 11. Recreational Drug Use: Never Drug Type: Tobacco Use: Current Every Day Smoker Tobacco Type: Amount or Packs/day: How Many Years: Alcohol Use: No Frequency: Quant:
== END ==
LOC: PAIN 07:35
DX: G89.29 Other chronic pain (principal); F32.9 Major depressive disorder, single episode, unspecified

== ENCOUNTER → 2019-12-06 | Outpatient (CLI) | payer OTHER ==
[~2019-12-06] MED LIST changes: +PEPCID AC10 MG PO
[2019-12-06 13:16] VITALS: BP 120/64
--- NOTE | 2019-12-06 13:27 | NUR ---
Pain Clinic Assessment: 1. History of Osteoarthritis: RIGHT ANKLE LEFT ANKLE History of Rheumatoid Arthritis: Not Applicable 2. Height: 5 ft. 8 in. 172.7 cm. Weight: lb. oz. kg. Patient's BMI: 3. Vital Signs: BP: 120/64 Pulse: 87 Resp: 20 Temp: 02 Sat: 97 ECG Mon: 4. Pain Intensity: 7 5. Fall Risk: Dizziness: N Needs help standing or walking: Y Fallen in the last 3 months: N Fall risk comments: 6. Patient on Blood Thinner: None 7. History of Hypertension: Y 8. Opioid Therapy greater than 6 weeks: Y Opiate Contract Signed: 03/30/16 9. Risk Assessment Tool Provided: LOW RISK 2 10. Functional Assessment Tool: 11. Recreational Drug Use: Never Drug Type: Tobacco Use: Current Every Day Smoker Tobacco Type: Amount or Packs/day: How Many Years: Alcohol Use: No Frequency: Quant:
--- NOTE | 2019-12-08 08:45 | HPC ---
[facility] [place] [address] PAIN MANAGEMENT CONSULTATION Name: SANDRITA RIVAS Room #: REG CHARLY Adriana#: [id number] Admission: 12/06/19 Attend Phys: Valarie Oliva Discharge: Date of : 47 Report #: [id number] THIS REPORT FOR: cc: Bennie Stephens MD, Bruce H. MD Hocker,Valarie RODRIGUEZ ~ DATE OF SERVICE: 12/06/2019 CHIEF COMPLAINT: Bilateral foot pain and right leg pain. HISTORY OF PRESENT ILLNESS: This is a pleasant 74-year-old female who returns to the pain clinic today for her chronic pain issues, mostly located in her bilateral feet from numerous surgeries. Today, she is here reporting a pain score of 7/10. Her right leg has been wrapped in Sam bandage. She reports that she has a sore on the lateral aspect of her right foot, recently been to Dr. Andrew Rubin for wound care and his ongoing treatment. She believes this resulted in rubbing from her orthotics that she wears. The patient is hopeful that it will slowly heal. She is hopeful to have another foot surgery on her left foot hammertoe. The patient reports today that she has stopped her methadone about 2 weeks ago. She felt that it was causing some itching and feeling "creepy crawling on her skin." She has not noticed a significant increase in her pain since stopping this medication. She continues to use the fentanyl patches as well as the Dilaudid and states these have been beneficial as well as resting and elevating her feet. She denies any problems with constipation or daytime sleepiness as a result of her medications. ALLERGIES: POLLEN, IV DYE, SULFA and CODEINE. CURRENT LIST OF MEDICATIONS: Hydromorphone 4 mg p.r.n., fentanyl patch 25 mcg, omeprazole, duloxetine, Amaryl, gabapentin, Cozaar, Lipitor, Norvasc, multivitamin, esterase, alprazolam and Glucophage. PQRS: 1. She has arthritic changes involving her feet. Denies any rheumatoid arthritis. 2. Height is 5 feet 8 inches. 3. Vital signs; 120/64, pulse is 87, respirations 20, oxygen sat is 97%. 4. Pain score 7/10. 5. Denies dizziness. Does need assistance with walking. She uses a cane, has not fallen in the last 3 months. 6. The patient is not on any blood thinners. The patient does suffer from hypertension and takes medications. 7. Opioid therapy is greater than 6 weeks; therefore, [place] [address] PAIN MANAGEMENT CONSULTATION Name: SANDRITA RIVAS Room #: [facility] [id number] Admission: 12/06/19 Attend Phys: Valarie Oliva Discharge: Date of : 47 Report #: [id number] is on the chart. Risk assessment tool is low. Functional assessment is 37/70. 8. Recreational drug use, she denies. She is a current smoker and does not drink alcohol. According to the prescription monitoring system, the patient is filling appropriately for her medications. She is due to fill in about 2 weeks' time for her fentanyl, but due for her hydromorphone. Her current morphine mEq since she stopped her methadone is 140, well above the CDC guidelines. PHYSICAL EXAMINATION: GENERAL: This is alert and orientated female who places her pain score at 7/10 today. HEENT: Normocephalic, atraumatic. Pupils equal, round and reactive to light. NECK: Without adenopathy or JVD. EXTREMITIES: Upper extremity strength judged to be 5/5 in all major muscle groups as well as her lower extremity, though she does use a cane and walks with a slightly antalgic gait. She has pain in her bilateral feet. Today, her right foot is wrapped with an Sam bandage due to an open sore on the lateral aspect of her right foot and this was not visualized today due to just being changed by the wound physician. The patient also complains of burning and tingling in her left foot. IMPRESSION: 1. Chronic pain involving her bilateral feet, treated with complex medication regime. 2. Depression. The patient follows a psychiatric doctor. 3. Complex medical management under opioid agreement. We reviewed the fact that opiate medications are being used to provide analgesia adequate to support activities of daily living, not attempting to achieve a specific pain score on the 0-10 Visual Analog Scale. The current opiate medications are providing sufficient analgesia to allow the patient to participate in activities of daily living. The patient is not exhibiting any aberrant behavior suggestive of drug diversion. The patient is not having any adverse reactions to medications. The patient is not suffering from daytime somnolence or mental acuity changes. The patient is managing opiate-induced constipation with appropriate [id number] agents and dietary considerations. The patient was counseled on concern for caution with operating a motor vehicle while using opiate medications. PLAN: 1. The patient reports that her slightly over a month ago, was crying for part of this conversation today. He had suffered from lymphoma for several years. 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 2. The patient reports she recently stopped her methadone due to side effects of this medication. We will continue pain management without this medication. [address] [address] PAIN MANAGEMENT CONSULTATION Name: SANDRITA RIVAS [facility] [id number] Admission: 12/06/19 Attend Phys: Valarie Oliva Discharge: Date of : 47 Report #: [id number] 3. We will refill her fentanyl 25 mcg patch, #15 for today for an 8-week release as well as her hydromorphone 4 mg, #150 for the next 3 months. I explained to the patient the CDC guidelines and our hope to decrease her slowly over time from 140 morphine mEq closer to the CDC guidelines, but understand she has a legacy. The patient has been stable on these meds for quite some time. The patient verbalizes understanding. 4. Scripts were written by Dr. Matthews, who collaborated care with me today. The patient will return in followup in 3 months. <ELECTRONICALLY SIGNED> By: Valarie Oliva 12/08/19 0845 [id number] Valarie Oliva /matt
== END ==
LOC: PAIN
DX: M79.672 Pain in left foot (principal); M79.671 Pain in right foot; G89.29 Other chronic pain; F32.9 Major depressive disorder, single episode, unspecified; Z79.891 Long term (current) use of opiate analgesic

== ENCOUNTER → 2020-03-06 | Outpatient (CLI) | payer OTHER | LOC: HYPER 10:23 | DX: E11.621 Type 2 diabetes mellitus with foot ulcer (principal); L97.512 Non-pressure chronic ulcer of other part of right foot with fat layer exposed; L97.521 Non-pressure chronic ulcer of other part of left foot limited to breakdown of skin; E11.40 Type 2 diabetes mellitus with diabetic neuropathy, unspecified; E78.5 Hyperlipidemia, unspecified; G89.4 Chronic pain syndrome; L30.9 Dermatitis, unspecified; I10 Essential (primary) hypertension; J45.909 Unspecified asthma, uncomplicated; M19.90 Unspecified osteoarthritis, unspecified site; K22.70 Barrett's esophagus without dysplasia; K21.9 Gastro-esophageal reflux disease without esophagitis; L84 Corns and callosities; F41.9 Anxiety disorder, unspecified; F32.9 Major depressive disorder, single episode, unspecified; F17.200 Nicotine dependence, unspecified, uncomplicated; Z79.84 Long term (current) use of oral hypoglycemic drugs ==

== ENCOUNTER → 2020-03-06 | Outpatient (CLI) | payer OTHER ==
[~2020-03-06] VITALS: Ht 172.7 cm; Wt 97.0 kg
[2020-03-06 08:51] VITALS: BP 127/66
--- NOTE | 2020-03-06 09:12 | NUR ---
Pain Clinic Assessment: 1. History of Osteoarthritis: RIGHT ANKLE LEFT ANKLE History of Rheumatoid Arthritis: Not Applicable 2. Height: 5 ft. 8 in. 172.7 cm. Weight: 213.8 lb. oz. 96.979 kg. Patient's BMI: 32.5 3. Vital Signs: BP: 127/66 Pulse: 90 Resp: 18 Temp: 02 Sat: 95 ECG Mon: 4. Pain Intensity: 6 WITH MEDS 5. Fall Risk: Dizziness: N Needs help standing or walking: Y Fallen in the last 3 months: N Fall risk comments: 6. Patient on Blood Thinner: None 7. History of Hypertension: Y 8. Opioid Therapy greater than 6 weeks: Y Opiate Contract Signed: 03/30/16 9. Risk Assessment Tool Provided: LOW RISK 2 10. Functional Assessment Tool: 11. Recreational Drug Use: Never Drug Type: Tobacco Use: Current Every Day Smoker Tobacco Type: Cigarettes Amount or Packs/day: 1 How Many Years: 30 Alcohol Use: No Frequency: Quant:
--- NOTE | 2020-03-15 15:51 | HPC ---
[facility] [place] [address] [place] [address] PAIN MANAGEMENT CONSULTATION Name: SANDRITA RIVAS Room #: REG CHARLY VitalKaylee#: [id number] Admission: 03/06/20 Attend Phys: Jess Matthews MD Discharge: Date of : 47 Report #: [id number] THIS REPORT FOR: cc: Bennie Stephens MD, Bruce H. MD Brown, N. Wayne MD ~ CC: Bennie Tapia MD DATE OF SERVICE: 03/06/2020 CHIEF COMPLAINT: "Still having pain in my feet." HISTORY: The patient is a 74-year-old female who has been followed in the Pain Clinic for quite some time. She continues to have pain, which is problematic. She has had a number of surgeries on her foot. She continued to follow up in the Wound Care regarding her right foot. She had a right ankle fusion in 2016. Continues to have some muscle spasms, shooting pain and radiating discomfort. She rates her pain as a 6/10 with her current medication regimen. Walking, changes in weather and nighttime can exacerbate her discomfort. She finds that use of her medication is helpful. She elevates her leg. She finds that the application of cold and pressure can sometimes be helpful as well. She is still more mourning the of her . He recently as a result of lymphoma. ALLERGIES: CODEINE, SULFA, IV DYE. CURRENT MEDICATIONS: Fentanyl patches q. 48 hours, Dilaudid 4 mg q. 4-6 hours p.r.n., Amaryl 2 tablets, gabapentin 300 mg b.i.d., 600 mg at bedtime, Cymbalta 20 mg, Cozaar 25 mg, Lipitor 20 mg, Norvasc 5 mg, multivitamins, Estrace 0.5 mg, alprazolam 0.5 mg, and metformin 1 mg b.i.d. PAIN CLINIC ASSESSMENT/PQRS: 1. The patient has some arthritic changes involving her feet, left and right. She is not being treated for rheumatoid arthritis. 2. Height 5 feet 8 inches, weight 213 pounds, BMI is 32.5. 3. Vital Signs: Blood pressure 127/66, pulse 90, respiratory rate 18, room air saturation 95%. 4. Pain intensity, 6/10 with medications. 5. Fall history: The patient has not fallen in the last 3 months. 6. Blood thinner. The patient is not on a blood thinning medication. 7. Hypertension. The patient is being treated for hypertension. 8. Opioids greater than 6 weeks. 9. Risk assessment tool, low or moderate [place] [address] PAIN MANAGEMENT CONSULTATION Name: SANDRITA RIVAS Room #: REG Chirag Wright#: [id number] Admission: 03/06/20 Attend Phys: Jess Matthews MD Discharge: Date of : 47 Report #: [id number] 10. Functional assessment tool, . 11. Recreational drug use. The patient denies. 12. Tobacco: The patient is a current smoker. She smoked 1 pack of cigarettes per day for the last 30 years. 13. Alcohol. The patient denies frequent use of alcoholic beverages. PHYSICAL EXAMINATION: GENERAL: The patient is a well-developed, well-nourished white female. She is accompanied by a relative. She is still lamenting the loss of her . HEENT: Normocephalic, atraumatic. Extraocular eye muscles intact. Sclerae nonicteric. Mucous membranes are moist. NECK: Without adenopathy or JVD. HEART: Regular rate. ABDOMEN: Nontender, protuberant. EXTREMITIES: Upper extremity muscle strength is judged to be 5/5 for the major muscle groups in the upper extremity. The patient has pain and discomfort in the lower portion of her foot. She walks with an antalgic gait. Complains of pain and discomfort on the right foot. She has special shoes. IMPRESSION: 1. Chronic pain involving the left and right foot, treated with complex medical regimen. 2. Problems with her right foot and is being treated in the wound clinic. 3. Depression following the loss of her . The patient continues to follow up with her psychiatrist. 4. Some family discord. States that her son indicates he will no longer cry with her. RECOMMENDATIONS: We discussed treatment options with the patient. At this juncture, we will continue with her medications. She feels that the medications are working reasonably well. She has had no complications from their use. A script for fentanyl 25 mcg q. 48 hours has been provided. The patient will also continue with Dilaudid 4 mg one p.o. q 4-6 hours p.r.n. as needed. She will call us if she has any concerns. We would like to thank you for letting us participate in her care. We hope she continues to improve. <ELECTRONICALLY SIGNED> By: Jess Matthews MD 03/15/20 [id number] [id number] Jess Matthews MD /nt
== END ==
LOC: PAIN 06:46
PROVIDERS: ATTEND Anesthesiology Pain Medicine
DX: M79.672 Pain in left foot (principal); M79.671 Pain in right foot; F32.9 Major depressive disorder, single episode, unspecified; F11.20 Opioid dependence, uncomplicated; F17.210 Nicotine dependence, cigarettes, uncomplicated; Z79.899 Other long term (current) drug therapy

== ENCOUNTER → 2020-03-20 | Outpatient (CLI) | payer OTHER | LOC: HYPER 07:57 | PROVIDERS: ATTEND Emergency Medicine | DX: E11.621 Type 2 diabetes mellitus with foot ulcer (principal); L97.512 Non-pressure chronic ulcer of other part of right foot with fat layer exposed; L97.521 Non-pressure chronic ulcer of other part of left foot limited to breakdown of skin; L84 Corns and callosities; L30.9 Dermatitis, unspecified; E11.40 Type 2 diabetes mellitus with diabetic neuropathy, unspecified; E78.5 Hyperlipidemia, unspecified; G89.4 Chronic pain syndrome; I10 Essential (primary) hypertension; J45.909 Unspecified asthma, uncomplicated; K22.70 Barrett's esophagus without dysplasia; K21.9 Gastro-esophageal reflux disease without esophagitis; M19.90 Unspecified osteoarthritis, unspecified site; F41.9 Anxiety disorder, unspecified; F32.9 Major depressive disorder, single episode, unspecified; F17.200 Nicotine dependence, unspecified, uncomplicated; Z79.84 Long term (current) use of oral hypoglycemic drugs ==

== ENCOUNTER → 2020-04-03 | Outpatient (CLI) | payer OTHER | LOC: HYPER 07:36 | PROVIDERS: ATTEND Emergency Medicine | DX: E11.621 Type 2 diabetes mellitus with foot ulcer (principal); L97.512 Non-pressure chronic ulcer of other part of right foot with fat layer exposed; L97.521 Non-pressure chronic ulcer of other part of left foot limited to breakdown of skin; E11.40 Type 2 diabetes mellitus with diabetic neuropathy, unspecified; L30.9 Dermatitis, unspecified; G89.4 Chronic pain syndrome; L84 Corns and callosities; I10 Essential (primary) hypertension; E78.5 Hyperlipidemia, unspecified; M19.90 Unspecified osteoarthritis, unspecified site; J45.909 Unspecified asthma, uncomplicated; F41.9 Anxiety disorder, unspecified; F32.9 Major depressive disorder, single episode, unspecified; F17.290 Nicotine dependence, other tobacco product, uncomplicated; Z79.84 Long term (current) use of oral hypoglycemic drugs ==

== ENCOUNTER → 2020-05-01 | Outpatient (CLI) | payer OTHER | LOC: HYPER 04-24 10:38 | PROVIDERS: ATTEND Emergency Medicine | DX: E11.621 Type 2 diabetes mellitus with foot ulcer (principal); L97.512 Non-pressure chronic ulcer of other part of right foot with fat layer exposed; L97.522 Non-pressure chronic ulcer of other part of left foot with fat layer exposed; L84 Corns and callosities; L30.9 Dermatitis, unspecified; E11.40 Type 2 diabetes mellitus with diabetic neuropathy, unspecified; E78.5 Hyperlipidemia, unspecified; G89.4 Chronic pain syndrome; I10 Essential (primary) hypertension; J45.909 Unspecified asthma, uncomplicated; K21.9 Gastro-esophageal reflux disease without esophagitis; M19.90 Unspecified osteoarthritis, unspecified site; F17.200 Nicotine dependence, unspecified, uncomplicated; F41.9 Anxiety disorder, unspecified; F32.9 Major depressive disorder, single episode, unspecified; Z79.84 Long term (current) use of oral hypoglycemic drugs ==

== ENCOUNTER → 2020-05-08 | Outpatient (CLI) | payer OTHER | LOC: HYPER 10:16 | PROVIDERS: ATTEND Emergency Medicine | DX: E11.621 Type 2 diabetes mellitus with foot ulcer (principal); L97.512 Non-pressure chronic ulcer of other part of right foot with fat layer exposed; L97.522 Non-pressure chronic ulcer of other part of left foot with fat layer exposed; L84 Corns and callosities; L30.9 Dermatitis, unspecified; E11.40 Type 2 diabetes mellitus with diabetic neuropathy, unspecified; E78.5 Hyperlipidemia, unspecified; G89.4 Chronic pain syndrome; I10 Essential (primary) hypertension; J45.909 Unspecified asthma, uncomplicated; K21.9 Gastro-esophageal reflux disease without esophagitis; M19.90 Unspecified osteoarthritis, unspecified site; F41.9 Anxiety disorder, unspecified; F17.200 Nicotine dependence, unspecified, uncomplicated; F32.9 Major depressive disorder, single episode, unspecified; Z79.84 Long term (current) use of oral hypoglycemic drugs ==

== ENCOUNTER → 2020-05-16 | Outpatient (CLI) | payer OTHER | LOC: HYPER 12:54 | PROVIDERS: ATTEND Emergency Medicine | DX: E11.621 Type 2 diabetes mellitus with foot ulcer (principal); L97.512 Non-pressure chronic ulcer of other part of right foot with fat layer exposed; L97.522 Non-pressure chronic ulcer of other part of left foot with fat layer exposed; L84 Corns and callosities; L30.9 Dermatitis, unspecified; E11.40 Type 2 diabetes mellitus with diabetic neuropathy, unspecified; E78.5 Hyperlipidemia, unspecified; G89.4 Chronic pain syndrome; I10 Essential (primary) hypertension; J45.909 Unspecified asthma, uncomplicated; M19.90 Unspecified osteoarthritis, unspecified site; K21.9 Gastro-esophageal reflux disease without esophagitis; K22.70 Barrett's esophagus without dysplasia; F17.200 Nicotine dependence, unspecified, uncomplicated; F41.9 Anxiety disorder, unspecified; F32.9 Major depressive disorder, single episode, unspecified; Z79.84 Long term (current) use of oral hypoglycemic drugs ==

== ENCOUNTER → 2020-05-29 | Outpatient (CLI) | payer OTHER | LOC: HYPER 10:45 | PROVIDERS: ATTEND Emergency Medicine | DX: E11.621 Type 2 diabetes mellitus with foot ulcer (principal); L97.512 Non-pressure chronic ulcer of other part of right foot with fat layer exposed; L97.522 Non-pressure chronic ulcer of other part of left foot with fat layer exposed; L84 Corns and callosities; L30.9 Dermatitis, unspecified; E11.40 Type 2 diabetes mellitus with diabetic neuropathy, unspecified; E78.5 Hyperlipidemia, unspecified; G89.4 Chronic pain syndrome; I10 Essential (primary) hypertension; K21.9 Gastro-esophageal reflux disease without esophagitis; J45.909 Unspecified asthma, uncomplicated; M19.90 Unspecified osteoarthritis, unspecified site; F17.200 Nicotine dependence, unspecified, uncomplicated; F41.9 Anxiety disorder, unspecified; F32.9 Major depressive disorder, single episode, unspecified; Z79.84 Long term (current) use of oral hypoglycemic drugs ==

== ENCOUNTER → 2020-06-05 | Outpatient (CLI) | payer OTHER | LOC: HYPER 14:50 | PROVIDERS: ATTEND Emergency Medicine | DX: E11.621 Type 2 diabetes mellitus with foot ulcer (principal); L97.512 Non-pressure chronic ulcer of other part of right foot with fat layer exposed; L97.522 Non-pressure chronic ulcer of other part of left foot with fat layer exposed; L84 Corns and callosities; L30.9 Dermatitis, unspecified; E11.40 Type 2 diabetes mellitus with diabetic neuropathy, unspecified; E78.5 Hyperlipidemia, unspecified; G89.4 Chronic pain syndrome; I10 Essential (primary) hypertension; J45.909 Unspecified asthma, uncomplicated; M19.90 Unspecified osteoarthritis, unspecified site; K22.70 Barrett's esophagus without dysplasia; K21.9 Gastro-esophageal reflux disease without esophagitis; F41.9 Anxiety disorder, unspecified; F32.9 Major depressive disorder, single episode, unspecified; F17.200 Nicotine dependence, unspecified, uncomplicated; Z79.84 Long term (current) use of oral hypoglycemic drugs ==

== ENCOUNTER → 2020-06-13 | Outpatient (CLI) | payer OTHER | LOC: HYPER 11:11 | PROVIDERS: ATTEND Emergency Medicine | DX: E11.621 Type 2 diabetes mellitus with foot ulcer (principal); L97.512 Non-pressure chronic ulcer of other part of right foot with fat layer exposed; L97.522 Non-pressure chronic ulcer of other part of left foot with fat layer exposed; S91.311A Laceration without foreign body, right foot, initial encounter; L30.9 Dermatitis, unspecified; L84 Corns and callosities; G89.4 Chronic pain syndrome; E11.40 Type 2 diabetes mellitus with diabetic neuropathy, unspecified; E78.5 Hyperlipidemia, unspecified; I10 Essential (primary) hypertension; J45.909 Unspecified asthma, uncomplicated; K22.70 Barrett's esophagus without dysplasia; K21.9 Gastro-esophageal reflux disease without esophagitis; M19.90 Unspecified osteoarthritis, unspecified site; F41.9 Anxiety disorder, unspecified; F32.9 Major depressive disorder, single episode, unspecified; F17.200 Nicotine dependence, unspecified, uncomplicated; Z79.84 Long term (current) use of oral hypoglycemic drugs; X58.XXXA Exposure to other specified factors, initial encounter; Y93.89 Activity, other specified; Y92.89 Other specified places as the place of occurrence of the external cause; Y99.8 Other external cause status ==

== ENCOUNTER → 2020-06-19 | Outpatient (CLI) | payer OTHER ==
[~2020-06-19] VITALS: Ht 172.7 cm; Wt 96.6 kg
--- NOTE | ~2020-06-19 | HPC ---
[facility] [place] [address] [place] [address] PAIN MANAGEMENT CONSULTATION Name: SANDRITA RIVAS Room #: REG CHARLY FinneganKayleeAngelicaKaylee#: [id number] Admission: 06/19/20 Attend Phys: Jess Matthews MD Discharge: Date of : 47 Report #: [id number] THIS REPORT FOR: cc: Bennie Stephens MD, Bruce H. MD Brown, N. Wayne MD ~ CC: Bennie Pena MD DATE OF SERVICE: 06/19/2020 CHIEF COMPLAINT: Here for medication renewal. HISTORY: The patient is a 74-year-old female who has been followed in the pain clinic for quite a number of years. As you recall, she has had tremendous problems with her lower extremity. She has had a number of foot surgeries. She is still missing her , Vin. She does think about him often and becomes tearful. She has returned today for renewing of her medications. ALLERGIES: CODEINE, SULFA, IV DYE. CURRENT MEDICATIONS: Fentanyl patches every 48 hours, Dilaudid 4 mg every 4-6 hours p.r.n., Amaryl 2 tablets, gabapentin 300 mg b.i.d., Cymbalta 20 mg, Cozaar 25 mg, Lipitor 20 mg, Norvasc 5 mg, Estrace 0.5 mg, alprazolam 0.5 mg, metformin 1 mg b.i.d. PAIN CLINIC ASSESSMENT/PQRS: 1. The patient has some arthritic changes in her feet, left and right. The patient is not being treated for rheumatoid arthritis. 2. Height 5 feet 8 inches, weight 213 pounds, BMI is 32.4. 3. Vital Signs: Blood pressure 133/73, pulse 105, respiratory rate 22, saturation is 96%. 4. Pain intensity 5-6/10. 5. Fall risk: The patient has not fallen in the last 3 months. 6. Blood thinner: The patient is not on a blood thinning medication. 7. Hypertension: The patient is being treated for hypertension. 8. Opioids greater than 6 weeks: The patient receives medication from the pain clinic. 9. Risk assessment tool: Moderate for opioid use. 10. Functional assessment tool: 37/70. 11. Recreational drug use: The patient denies. 12. Tobacco: The patient is a current smoker. Smokes 1 pack of cigarettes per day for the past 30 years. 13. Alcohol: The patient denies frequent [place] [address] PAIN MANAGEMENT CONSULTATION Name: SADNRITA RIVAS Room #: REG [facility]#: [id number] Admission: 06/19/20 Attend Phys: Jess Matthews MD Discharge: Date of : 47 Report #: [id number] PHYSICAL EXAMINATION: GENERAL: The patient is a well-developed, well-nourished white female. Appears her stated age. She is accompanied by a relative. She continues to be tearful when speaking of her , Vin who has . HEENT: Normocephalic, atraumatic. Extraocular eye muscles intact. Sclerae nonicteric. Mucous membranes are moist. NECK: Without adenopathy or JVD. HEART: Regular. ABDOMEN: Nontender, protuberant. EXTREMITIES: Upper extremity muscle strength judged to be 5/5 for the major muscle groups in the upper extremity. The patient continues to have pain and discomfort in lower portion of her body. Complains of left as well as right foot pain. Has an antalgic gait. Complains of use for special shoes to help decrease her pain. IMPRESSION: 1. Pain involving the right and left foot, treated with complex medical management using opioids. 2. Problems with right foot, being treated in the Wound Clinic. 3. Depression following the loss of her , continues to follow up with her psychiatrist. 4. Family discord, difficulty with associating with her immediate family. RECOMMENDATIONS: We discussed treatment options with the patient. Risks and benefits of her medications were discussed. Possible complications of the procedure, which could include but are not limited to infection, worsening pain, no improvement in pain were discussed. A script for her medications were sent to her pharmacy. The patient will continue with fentanyl 25 mcg every 48 hours. The patient will also continue with Dilaudid 4 mg one p.o. every 4-6 hours p.r.n. as needed. The patient will call us if she has any concerns. We have discussed in the past possibility of problems with opioids. They can become less effective as time goes on. We also discussed that certain patients can become addicted to these medications and that they have as a result of overdosing with other medications. The patient states that she is taking her medications as prescribed. She is having no problems with the medications at this juncture. We would like to thank you for letting us participate in her care. We hope she continues to improve. By: [id number] Jess Matthews MD /EARLINE
[2020-06-19 13:42] VITALS: BP 133/73
--- NOTE | 2020-06-19 13:57 | NUR ---
Pain Clinic Assessment: 1. History of Osteoarthritis: RIGHT ANKLE LEFT ANKLE History of Rheumatoid Arthritis: Not Applicable 2. Height: 5 ft. 8 in. 172.7 cm. Weight: 213.0 lb. oz. 96.616 kg. Patient's BMI: 32.4 3. Vital Signs: BP: 133/73 Pulse: 105 Resp: 22 Temp: 02 Sat: 96 ECG Mon: 4. Pain Intensity: 5-6 5. Fall Risk: Dizziness: N Needs help standing or walking: Y Fallen in the last 3 months: N Fall risk comments: 6. Patient on Blood Thinner: None 7. History of Hypertension: Y 8. Opioid Therapy greater than 6 weeks: Y Opiate Contract Signed: 03/30/16 9. Risk Assessment Tool Provided: LOW RISK 2 10. Functional Assessment Tool: 11. Recreational Drug Use: Never Drug Type: Tobacco Use: Current Every Day Smoker Tobacco Type: Cigarettes Amount or Packs/day: 5-6 CIGS/DAY How Many Years: Alcohol Use: No Frequency: Quant:
== END ==
LOC: PAIN 07:36
PROVIDERS: ATTEND Anesthesiology Pain Medicine
DX: M79.672 Pain in left foot (principal); M79.671 Pain in right foot; F32.9 Major depressive disorder, single episode, unspecified; Z88.1 Allergy status to other antibiotic agents

== ENCOUNTER → 2020-06-26 | Outpatient (CLI) | payer OTHER | LOC: HYPER 08:30 | PROVIDERS: ATTEND Emergency Medicine | DX: E11.621 Type 2 diabetes mellitus with foot ulcer (principal); L97.512 Non-pressure chronic ulcer of other part of right foot with fat layer exposed; L97.522 Non-pressure chronic ulcer of other part of left foot with fat layer exposed; L97.411 Non-pressure chronic ulcer of right heel and midfoot limited to breakdown of skin; L84 Corns and callosities; L30.9 Dermatitis, unspecified; E11.40 Type 2 diabetes mellitus with diabetic neuropathy, unspecified; E78.5 Hyperlipidemia, unspecified; E66.9 Obesity, unspecified; G89.4 Chronic pain syndrome; I10 Essential (primary) hypertension; J45.909 Unspecified asthma, uncomplicated; M19.90 Unspecified osteoarthritis, unspecified site; K22.70 Barrett's esophagus without dysplasia; K21.9 Gastro-esophageal reflux disease without esophagitis; F41.9 Anxiety disorder, unspecified; F32.9 Major depressive disorder, single episode, unspecified; F17.200 Nicotine dependence, unspecified, uncomplicated; Z79.84 Long term (current) use of oral hypoglycemic drugs; Z68.30 Body mass index [BMI] 30.0-30.9, adult ==

== ENCOUNTER → 2020-07-10 | Outpatient (CLI) | payer OTHER | LOC: HYPER 12:56 | PROVIDERS: ATTEND Emergency Medicine | DX: E11.621 Type 2 diabetes mellitus with foot ulcer (principal); L97.512 Non-pressure chronic ulcer of other part of right foot with fat layer exposed; L97.522 Non-pressure chronic ulcer of other part of left foot with fat layer exposed; L84 Corns and callosities; L30.9 Dermatitis, unspecified; E11.40 Type 2 diabetes mellitus with diabetic neuropathy, unspecified; E66.9 Obesity, unspecified; E78.5 Hyperlipidemia, unspecified; G89.4 Chronic pain syndrome; I10 Essential (primary) hypertension; J45.909 Unspecified asthma, uncomplicated; K21.9 Gastro-esophageal reflux disease without esophagitis; K22.70 Barrett's esophagus without dysplasia; M19.90 Unspecified osteoarthritis, unspecified site; F41.9 Anxiety disorder, unspecified; F17.200 Nicotine dependence, unspecified, uncomplicated; F32.9 Major depressive disorder, single episode, unspecified; Z79.84 Long term (current) use of oral hypoglycemic drugs; Z68.30 Body mass index [BMI] 30.0-30.9, adult ==

== ENCOUNTER → 2020-07-24 | Outpatient (CLI) | payer OTHER | LOC: HYPER 13:18 | PROVIDERS: ATTEND Emergency Medicine | DX: E11.621 Type 2 diabetes mellitus with foot ulcer (principal); L97.512 Non-pressure chronic ulcer of other part of right foot with fat layer exposed; L97.522 Non-pressure chronic ulcer of other part of left foot with fat layer exposed; L84 Corns and callosities; L30.9 Dermatitis, unspecified; E11.40 Type 2 diabetes mellitus with diabetic neuropathy, unspecified; E66.9 Obesity, unspecified; E78.5 Hyperlipidemia, unspecified; G89.4 Chronic pain syndrome; I10 Essential (primary) hypertension; J45.909 Unspecified asthma, uncomplicated; K22.70 Barrett's esophagus without dysplasia; K21.9 Gastro-esophageal reflux disease without esophagitis; M19.90 Unspecified osteoarthritis, unspecified site; F17.200 Nicotine dependence, unspecified, uncomplicated; F41.9 Anxiety disorder, unspecified; F32.9 Major depressive disorder, single episode, unspecified; Z79.84 Long term (current) use of oral hypoglycemic drugs; Z68.30 Body mass index [BMI] 30.0-30.9, adult ==

== ENCOUNTER → 2020-08-13 | Outpatient (CLI) | payer OTHER | LOC: HYPER 12:57 | PROVIDERS: ATTEND Emergency Medicine | DX: E11.621 Type 2 diabetes mellitus with foot ulcer (principal); L97.512 Non-pressure chronic ulcer of other part of right foot with fat layer exposed; L97.522 Non-pressure chronic ulcer of other part of left foot with fat layer exposed; S61.001A Unspecified open wound of right thumb without damage to nail, initial encounter; L97.411 Non-pressure chronic ulcer of right heel and midfoot limited to breakdown of skin; L84 Corns and callosities; L30.9 Dermatitis, unspecified; E11.40 Type 2 diabetes mellitus with diabetic neuropathy, unspecified; E78.5 Hyperlipidemia, unspecified; G89.4 Chronic pain syndrome; I10 Essential (primary) hypertension; J45.909 Unspecified asthma, uncomplicated; K22.70 Barrett's esophagus without dysplasia; K21.9 Gastro-esophageal reflux disease without esophagitis; M19.90 Unspecified osteoarthritis, unspecified site; F41.9 Anxiety disorder, unspecified; F17.200 Nicotine dependence, unspecified, uncomplicated; F32.9 Major depressive disorder, single episode, unspecified; Z79.84 Long term (current) use of oral hypoglycemic drugs; X58.XXXA Exposure to other specified factors, initial encounter; Y93.89 Activity, other specified; Y92.89 Other specified places as the place of occurrence of the external cause; Y99.8 Other external cause status ==

== ENCOUNTER → 2020-08-28 | Outpatient (CLI) | payer OTHER | LOC: HYPER 13:18 | PROVIDERS: ATTEND Emergency Medicine | DX: E11.621 Type 2 diabetes mellitus with foot ulcer (principal); L97.512 Non-pressure chronic ulcer of other part of right foot with fat layer exposed; L97.522 Non-pressure chronic ulcer of other part of left foot with fat layer exposed; L84 Corns and callosities; L30.9 Dermatitis, unspecified; E11.40 Type 2 diabetes mellitus with diabetic neuropathy, unspecified; E66.9 Obesity, unspecified; E78.5 Hyperlipidemia, unspecified; G89.4 Chronic pain syndrome; I10 Essential (primary) hypertension; J45.909 Unspecified asthma, uncomplicated; K21.9 Gastro-esophageal reflux disease without esophagitis; K22.70 Barrett's esophagus without dysplasia; M19.90 Unspecified osteoarthritis, unspecified site; F41.9 Anxiety disorder, unspecified; F32.9 Major depressive disorder, single episode, unspecified; F17.200 Nicotine dependence, unspecified, uncomplicated; Z79.84 Long term (current) use of oral hypoglycemic drugs; Z68.30 Body mass index [BMI] 30.0-30.9, adult ==

== ENCOUNTER → 2020-09-11 | Outpatient (CLI) | payer OTHER ==
[~2020-09-11] VITALS: Ht 172.7 cm; Wt 102.5 kg
[2020-09-11 12:41] VITALS: BP 127/69
--- NOTE | 2020-09-11 12:44 | NUR ---
Pain Clinic Assessment: 1. History of Osteoarthritis: RIGHT ANKLE LEFT ANKLE History of Rheumatoid Arthritis: Not Applicable 2. Height: 5 ft. 8 in. 172.7 cm. Weight: 226.0 lb. oz. 102.513 kg. Patient's BMI: 34.4 3. Vital Signs: BP: 127/69 Pulse: 84 Resp: 16 Temp: 02 Sat: 95 ECG Mon: 4. Pain Intensity: 7 5. Fall Risk: Dizziness: N Needs help standing or walking: N Fallen in the last 3 months: N Fall risk comments: 6. Patient on Blood Thinner: None 7. History of Hypertension: Y 8. Opioid Therapy greater than 6 weeks: Y Opiate Contract Signed: 03/30/16 9. Risk Assessment Tool Provided: LOW RISK 2 10. Functional Assessment Tool: 11. Recreational Drug Use: Never Drug Type: Tobacco Use: Current Every Day Smoker Tobacco Type: Cigarettes Amount or Packs/day: 3 CIGS/DAY How Many Years: Alcohol Use: No Frequency: Quant:
== END ==
LOC: PAIN 06:44
PROVIDERS: ATTEND Anesthesiology Pain Medicine
DX: M79.671 Pain in right foot (principal); M79.672 Pain in left foot; E78.00 Pure hypercholesterolemia, unspecified; I10 Essential (primary) hypertension; E11.9 Type 2 diabetes mellitus without complications; K21.9 Gastro-esophageal reflux disease without esophagitis; F41.9 Anxiety disorder, unspecified; F17.210 Nicotine dependence, cigarettes, uncomplicated; F32.9 Major depressive disorder, single episode, unspecified; Z79.891 Long term (current) use of opiate analgesic

== ENCOUNTER → 2020-09-11 | Outpatient (CLI) | payer OTHER | LOC: HYPER 13:35 | PROVIDERS: ATTEND Emergency Medicine | DX: E11.621 Type 2 diabetes mellitus with foot ulcer (principal); L97.512 Non-pressure chronic ulcer of other part of right foot with fat layer exposed; L97.522 Non-pressure chronic ulcer of other part of left foot with fat layer exposed; L84 Corns and callosities; L30.9 Dermatitis, unspecified; E11.40 Type 2 diabetes mellitus with diabetic neuropathy, unspecified; E66.9 Obesity, unspecified; E78.5 Hyperlipidemia, unspecified; G89.4 Chronic pain syndrome; I10 Essential (primary) hypertension; J45.909 Unspecified asthma, uncomplicated; K21.9 Gastro-esophageal reflux disease without esophagitis; K22.70 Barrett's esophagus without dysplasia; M19.90 Unspecified osteoarthritis, unspecified site; F41.9 Anxiety disorder, unspecified; F32.9 Major depressive disorder, single episode, unspecified; F17.200 Nicotine dependence, unspecified, uncomplicated; Z79.84 Long term (current) use of oral hypoglycemic drugs; Z68.30 Body mass index [BMI] 30.0-30.9, adult ==

== ENCOUNTER → 2020-11-13 | Outpatient (CLI) | payer OTHER | LOC: HYPER 11-12 16:56 | PROVIDERS: ATTEND Emergency Medicine | DX: E11.621 Type 2 diabetes mellitus with foot ulcer (principal); L97.512 Non-pressure chronic ulcer of other part of right foot with fat layer exposed; L97.522 Non-pressure chronic ulcer of other part of left foot with fat layer exposed; L84 Corns and callosities; L30.9 Dermatitis, unspecified; E11.40 Type 2 diabetes mellitus with diabetic neuropathy, unspecified; E66.9 Obesity, unspecified; E78.5 Hyperlipidemia, unspecified; G89.4 Chronic pain syndrome; I10 Essential (primary) hypertension; J45.909 Unspecified asthma, uncomplicated; K21.9 Gastro-esophageal reflux disease without esophagitis; K22.70 Barrett's esophagus without dysplasia; M19.90 Unspecified osteoarthritis, unspecified site; F41.9 Anxiety disorder, unspecified; F32.9 Major depressive disorder, single episode, unspecified; F17.200 Nicotine dependence, unspecified, uncomplicated; Z79.84 Long term (current) use of oral hypoglycemic drugs; Z68.30 Body mass index [BMI] 30.0-30.9, adult ==

== ENCOUNTER → 2020-12-18 | Outpatient (CLI) | payer OTHER ==
[~2020-12-18] VITALS: Ht 172.7 cm; Wt 104.1 kg
[~2020-12-18] MED LIST changes: +MORPHINE SULFAT30 M1 PO; +MORPHINE SULFAT30 M4 PO; +SUPER THERAVIT1 EACH PO; +VITAMIN B-121000 MC2; +ZYRTEC10 M4 PO
[2020-12-18 13:36] VITALS: BP 152/78
--- NOTE | 2020-12-18 13:56 | NUR ---
Pain Clinic Assessment: 1. History of Osteoarthritis: RIGHT ANKLE LEFT ANKLE History of Rheumatoid Arthritis: Not Applicable 2. Height: 5 ft. 8 in. 172.7 cm. Weight: 229.4 lb. oz. 104.055 kg. Patient's BMI: 34.9 3. Vital Signs: BP: 152/78 Pulse: 89 Resp: 20 Temp: 02 Sat: 94 ECG Mon: 4. Pain Intensity: 9 5. Fall Risk: Dizziness: N Needs help standing or walking: Y Fallen in the last 3 months: N Fall risk comments: 6. Patient on Blood Thinner: None 7. History of Hypertension: Y 8. Opioid Therapy greater than 6 weeks: Y Opiate Contract Signed: 03/30/16 9. Risk Assessment Tool Provided: LOW RISK 2 10. Functional Assessment Tool: 11. Recreational Drug Use: Never Drug Type: Tobacco Use: Current Every Day Smoker Tobacco Type: Amount or Packs/day: 1 PK/D How Many Years: Alcohol Use: No Frequency: Quant:
--- NOTE | 2020-12-19 07:15 | HPC ---
[facility] [place] [address] PAIN MANAGEMENT CONSULTATION Name: SANDRITA RIVAS Room #: REG CHARLY Adriana#: [id number] Admission: 12/18/20 Attend Phys: Valarie Oliva Discharge: Date of : 46 Report #: [id number] THIS REPORT FOR: cc: Bennie Stephens MD, Bruce H. MD Hocker,Valarie RODRIGUEZ ~ DATE OF SERVICE: 12/18/2020 CHIEF COMPLAINT: Right foot pain, left ankle pain. HISTORY OF PRESENT ILLNESS: This is a 75-year-old female who returns today for a discussion on her opioid medications. Today, she is in tears through most of our visit, stating that her right foot is very painful today. She recently had it cauterized at Dr. Rubin' office, her teacher selection specialist. Her right foot wound was almost healed, but then she started having issues again and is now requiring weekly visits with the teacher selection specialist. She rates this pain today a 9/10. She also has ongoing left ankle pain. Any walking or weightbearing is painful to her. She also believes the medication is not as beneficial it has in the past. She has been elevating and using cold on her foot as well. The patient is also very upset and depressed today and scared that she is no longer going to be able to have any opioid medications due to a letter she received from her insurance provider. It stating they do not want her on fentanyl any longer. This has caused much panic in her today. She is also getting ready to move to assisted living facility, trying to sell her house and all of her belongings, so this has also caused a great deal of stress for her. ALLERGIES: CODEINE, IV DYE, TALWIN, and SULFA. CURRENT LIST OF MEDICATIONS: Fentanyl 25 mcg patch, Zyrtec, B12, Dilaudid 4 mg p.r.n., Pepcid, omeprazole, duloxetine, Amaryl, gabapentin, Cozaar, atorvastatin, amlodipine, multivitamin, estradiol, alprazolam and metformin. PQRS: 1. Osteoarthritic changes in her ankles. Denies rheumatoid arthritis. 2. Height is 5 feet 8 inches, weight is 224, BMI is 34. Vital signs 152/78, pulse is 89, respirations 20, oxygen sat is 94%. Pain score is 9/10. Fall risk. Denies dizziness. Does need assistance with ambulation. At times, uses a cane. She has not fallen in the last 3 months. The patient is not on any blood thinners, but does take antihypertensive medications. Opioid therapy is greater than 6 weeks; therefore, an opioid signed contract is on the chart. Risk assessment is low. Functional assessment is 37/70. 3. Recreational drug use, she denies. She is a current smoker and does not drink alcohol. According to the prescription monitoring system, she is due to fill her [address] [address] PAIN MANAGEMENT CONSULTATION Name: SANDRITA RIVAS Room #: REG [facility] Adriana#: [id number] Admission: 12/18/20 Attend Phys: Valarie Oliva Discharge: Date of : 46 Report #: [id number] medications today. She is on a high MME of 140 and closely monitored in the clinic. She does take alprazolam as well and is followed by a therapist. PHYSICAL EXAMINATION: GENERAL: This is a well-developed, well-nourished, slightly obese, very depressed, tearful 75-year-old who is alert and orientated, rating her pain score today at 9/10. HEENT: Normocephalic, atraumatic. Extraocular eye muscles are intact. Sclerae are nonintrinsic though reddened from crying. She is wearing a face mask. NECK: Without adenopathy or JVD. MUSCULOSKELETAL: She is without significant kyphosis, scoliosis or lordosis. She has decreased strength in her lower extremities with pain increased in her right foot. She does have a dressing over her right foot today, though it is not visualized. IMPRESSION: 1. Right foot pain, being treated by wound clinic, ongoing left ankle pain. 2. Depression and anxiety. 3. Complex medical management utilizing scheduled opioid medications. PLAN: 1. We discussed treatment options with the patient today. I did spend some time discussing her home life situation believing that an assisted living facility will be good for her, allowing her help with some of her care as well as socialization, which she is lacking at home. We did discuss selling her house, how it can be very emotional time for her, just reassured her today. 2. She has brought a letter from her insurance company encouraging her to ask for a different long-acting opioid. She has been stable on fentanyl since 2009, but we will attempt an opioid rotation due to the fact that the patient has recently been having increasing pain. An equivalent dosing would be morphine sulfate ER 30 mg b.i.d. This was discussed with Dr. Estuardo Matthews. The patient will start this medication on Wednesday in the morning, stopping her fentanyl patch by 5:00 p.m., then taking her second morphine dose in the evening, then continuing twice a day. Scripts were written for 3 months of this medication, but the patient instructed to call us if she does have any issues with this medication. We will continue her on Dilaudid 4 mg #150 as prescribed. 3. We did encourage her to talk to her counselor or therapist that she sees on for a weekly basis. She believes her antidepressant is not effective as it was in the past. She has been very tearful today throughout our conversation. 4. The patient has had both of her COVID vaccines and she is very thankful for that. Time spent with the patient in consultation, reviewing imaging, reviewing recent studies, clinical notes and physician reports, physician examination and correlation of physical findings and medical documentation to determine possible treatments of 22 minutes. Time spent in preparation for appointment, reviewing [address] [address] PAIN MANAGEMENT CONSULTATION Name: SANDRITA RIVAS Room #: REG [facility] Adriana#: [id number] Admission: 12/18/20 Attend Phys: Valarie Oliva Discharge: Date of : 46 Report #: [id number] prescription, monitoring reports, reviewing previous records and treatment options and reviewing current medications 5 minutes. Time spent preparing and sending electronic prescriptions, documentation of visit and plan and treatments with collaborated physician of 10 minutes. Total time spent 37 minutes. <ELECTRONICALLY SIGNED> By: Valarie Oliva 12/19/20 0715 [id number] Valarie Oliva /matt
== END ==
LOC: PAIN 06:55
PROVIDERS: ATTEND Clinical Nurse Specialist Adult Health
DX: M79.671 Pain in right foot (principal); M25.572 Pain in left ankle and joints of left foot; F41.8 Other specified anxiety disorders; F11.20 Opioid dependence, uncomplicated; Z88.8 Allergy status to other drugs, medicaments and biological substances; Z79.899 Other long term (current) drug therapy

== ENCOUNTER → 2020-12-18 | Outpatient (CLI) | payer OTHER | LOC: HYPER 10:43 | PROVIDERS: ATTEND Emergency Medicine | DX: E11.621 Type 2 diabetes mellitus with foot ulcer (principal); L97.512 Non-pressure chronic ulcer of other part of right foot with fat layer exposed; L97.522 Non-pressure chronic ulcer of other part of left foot with fat layer exposed; L84 Corns and callosities; L30.9 Dermatitis, unspecified; E11.40 Type 2 diabetes mellitus with diabetic neuropathy, unspecified; E66.9 Obesity, unspecified; E78.5 Hyperlipidemia, unspecified; G89.4 Chronic pain syndrome; I10 Essential (primary) hypertension; J45.909 Unspecified asthma, uncomplicated; K21.9 Gastro-esophageal reflux disease without esophagitis; K22.70 Barrett's esophagus without dysplasia; M19.90 Unspecified osteoarthritis, unspecified site; F41.9 Anxiety disorder, unspecified; F32.9 Major depressive disorder, single episode, unspecified; F17.200 Nicotine dependence, unspecified, uncomplicated; Z79.84 Long term (current) use of oral hypoglycemic drugs; Z68.30 Body mass index [BMI] 30.0-30.9, adult ==

== ENCOUNTER → 2021-01-15 | Outpatient (CLI) | payer OTHER | LOC: HYPER 13:32 | PROVIDERS: ATTEND Emergency Medicine | DX: E11.621 Type 2 diabetes mellitus with foot ulcer (principal); L97.512 Non-pressure chronic ulcer of other part of right foot with fat layer exposed; L97.522 Non-pressure chronic ulcer of other part of left foot with fat layer exposed; S91.301D Unspecified open wound, right foot, subsequent encounter; L84 Corns and callosities; L30.9 Dermatitis, unspecified; E11.40 Type 2 diabetes mellitus with diabetic neuropathy, unspecified; E66.9 Obesity, unspecified; E78.5 Hyperlipidemia, unspecified; G89.4 Chronic pain syndrome; I10 Essential (primary) hypertension; J45.909 Unspecified asthma, uncomplicated; K21.9 Gastro-esophageal reflux disease without esophagitis; K22.70 Barrett's esophagus without dysplasia; M19.90 Unspecified osteoarthritis, unspecified site; F41.9 Anxiety disorder, unspecified; F32.9 Major depressive disorder, single episode, unspecified; F17.200 Nicotine dependence, unspecified, uncomplicated; Z79.84 Long term (current) use of oral hypoglycemic drugs; Z68.30 Body mass index [BMI] 30.0-30.9, adult; X58.XXXD Exposure to other specified factors, subsequent encounter ==

== ENCOUNTER → 2021-02-17 | Outpatient (CLI) | payer OTHER | LOC: HYPER 11:41 | PROVIDERS: ATTEND Emergency Medicine | DX: E11.621 Type 2 diabetes mellitus with foot ulcer (principal); L97.512 Non-pressure chronic ulcer of other part of right foot with fat layer exposed; L97.522 Non-pressure chronic ulcer of other part of left foot with fat layer exposed; L84 Corns and callosities; L30.9 Dermatitis, unspecified; E11.40 Type 2 diabetes mellitus with diabetic neuropathy, unspecified; E66.9 Obesity, unspecified; E78.5 Hyperlipidemia, unspecified; G89.4 Chronic pain syndrome; I10 Essential (primary) hypertension; J45.909 Unspecified asthma, uncomplicated; K21.9 Gastro-esophageal reflux disease without esophagitis; K22.70 Barrett's esophagus without dysplasia; M19.90 Unspecified osteoarthritis, unspecified site; F41.9 Anxiety disorder, unspecified; F32.9 Major depressive disorder, single episode, unspecified; F17.200 Nicotine dependence, unspecified, uncomplicated; Z79.84 Long term (current) use of oral hypoglycemic drugs; Z68.30 Body mass index [BMI] 30.0-30.9, adult ==

== ENCOUNTER → 2021-02-25 | Outpatient (CLI) | payer OTHER | LOC: HYPER 08:24 | PROVIDERS: ATTEND Emergency Medicine | DX: E11.621 Type 2 diabetes mellitus with foot ulcer (principal); L97.512 Non-pressure chronic ulcer of other part of right foot with fat layer exposed; L97.522 Non-pressure chronic ulcer of other part of left foot with fat layer exposed; L84 Corns and callosities; L30.9 Dermatitis, unspecified; E11.40 Type 2 diabetes mellitus with diabetic neuropathy, unspecified; E66.9 Obesity, unspecified; E78.5 Hyperlipidemia, unspecified; G89.4 Chronic pain syndrome; I10 Essential (primary) hypertension; J45.909 Unspecified asthma, uncomplicated; K21.9 Gastro-esophageal reflux disease without esophagitis; K22.70 Barrett's esophagus without dysplasia; M19.90 Unspecified osteoarthritis, unspecified site; F41.9 Anxiety disorder, unspecified; F32.9 Major depressive disorder, single episode, unspecified; F17.200 Nicotine dependence, unspecified, uncomplicated; Z79.84 Long term (current) use of oral hypoglycemic drugs; Z68.30 Body mass index [BMI] 30.0-30.9, adult ==

== ENCOUNTER → 2021-03-06 | Outpatient (CLI) | payer OTHER | LOC: HYPER 09:21 | PROVIDERS: ATTEND Emergency Medicine | DX: E11.621 Type 2 diabetes mellitus with foot ulcer (principal); L97.512 Non-pressure chronic ulcer of other part of right foot with fat layer exposed; L97.522 Non-pressure chronic ulcer of other part of left foot with fat layer exposed; L84 Corns and callosities; L30.9 Dermatitis, unspecified; E11.40 Type 2 diabetes mellitus with diabetic neuropathy, unspecified; E66.9 Obesity, unspecified; E78.5 Hyperlipidemia, unspecified; G89.4 Chronic pain syndrome; I10 Essential (primary) hypertension; J45.909 Unspecified asthma, uncomplicated; K21.9 Gastro-esophageal reflux disease without esophagitis; K22.70 Barrett's esophagus without dysplasia; M19.90 Unspecified osteoarthritis, unspecified site; F41.9 Anxiety disorder, unspecified; F32.9 Major depressive disorder, single episode, unspecified; F17.200 Nicotine dependence, unspecified, uncomplicated; Z79.84 Long term (current) use of oral hypoglycemic drugs; Z68.30 Body mass index [BMI] 30.0-30.9, adult ==

== ENCOUNTER → 2021-03-19 | Outpatient (CLI) | payer OTHER ==
[~2021-03-19] VITALS: Ht 172.7 cm; Wt 98.0 kg
[~2021-03-19] MED LIST changes: +DURAGESIC1 EAC5 TOP; +TRULICITY0.75 MG/0. SUBQ
[2021-03-19 10:11] VITALS: BP 115/65
--- NOTE | 2021-03-19 10:16 | NUR ---
Pain Clinic Assessment: 1. History of Osteoarthritis: RIGHT ANKLE LEFT ANKLE History of Rheumatoid Arthritis: Not Applicable 2. Height: 5 ft. 8 in. 172.7 cm. Weight: 216.0 lb. oz. 97.977 kg. Patient's BMI: 32.9 3. Vital Signs: BP: 115/65 Pulse: 80 Resp: 18 Temp: 02 Sat: 93 ECG Mon: 4. Pain Intensity: 0 5. Fall Risk: Dizziness: N Needs help standing or walking: N Fallen in the last 3 months: N Fall risk comments: 6. Patient on Blood Thinner: None 7. History of Hypertension: Y 8. Opioid Therapy greater than 6 weeks: Y Opiate Contract Signed: 03/30/16 9. Risk Assessment Tool Provided: LOW RISK 2 10. Functional Assessment Tool: 11. Recreational Drug Use: Never Drug Type: Tobacco Use: Current Every Day Smoker Tobacco Type: Cigarettes Amount or Packs/day: 10/day How Many Years: Alcohol Use: No Frequency: Quant:
--- NOTE | 2021-03-20 08:41 | HPC ---
[facility] [place] [address] PAIN MANAGEMENT CONSULTATION Name: SANDRITA RIVAS Room #: REG CHARLY CathyAngelica.#: [id number] Admission: 03/19/21 Attend Phys: Valarie Oliva Discharge: Date of : 46 Report #: [id number] THIS REPORT FOR: cc: Bennie Stephens MD,Bennie Oliva,Valarie RODRIGUEZ ~ DOC #: [id number] cc: Bennie Stephens MD, MD Valarie Cormier, CRIMINAL JUSTICE TEACHER DATE OF SERVICE: 03/19/2021 CHIEF COMPLAINT: Right foot pain, left ankle pain, chronic. HISTORY OF PRESENT ILLNESS: This is a 75-year-old female who returns to the pain clinic today. She is very tearful throughout our meeting today. Today, she requested a renewal of her medications. She reports that she is having no pain at the present and believes the fentanyl as well as her Dilaudid had been very beneficial in helping reduce her pain. She does continue to see the wound clinic, Dr. Rubin for ongoing issues with her right foot. She also has wound therapy and physical therapy coming to her apartment per her report. At times, the increased walking does aggravate her pain and it is elevated at times when she is at home. Overall, she believes the medication is beneficial and describes her pain as an aching, burning sensation. Normally aside from medications rest, elevation and cold have been beneficial as well as utilizing Vicks to her lower extremities per her report. The patient is quite tearful through part of our visit today. She recently moved to a new facility called [facility] out of her home. It has been quite an adjustment for her. She reports that most of the residents are significantly older than her. She has also given up driving during this time. She reports she is going to try to live there for 6 months before she makes any decision whether to move to a different assisted living or if she would move to [place] where her son and sister lives. ALLERGIES: POLLEN, IV DYE, SULFA and CODEINE. CURRENT LIST OF MEDICATIONS: Trulicity, fentanyl 25 mcg patch, hydromorphone, Zyrtec, vitamin B12, Pepcid, omeprazole, Cymbalta 90 mg, Amaryl, gabapentin, losartan, atorvastatin, Norvasc, multivitamin, Estrace, Xanax and Glucophage. PQRS: 1. She has a history of osteoarthritic issues in her ankles bilaterally. She denies any rheumatoid arthritis. 2. Height is 5 feet 8 inches, weight is 216, BMI is 32. 3. Vital signs; blood pressure 115/65, pulse is 80, respirations 18, oxygen sat is 93%. [facility] [address] [place] [address] PAIN MANAGEMENT CONSULTATION Name: SANDRITA RIVAS Gareth Room #: REG Chirag Wright#: [id number] Admission: 03/19/21 Attend Phys: Valarie Oliva Discharge: Date of : 46 Report #: [id number] 4. Pain score is 0/10. 5. Denies dizziness does not need help walking or standing has not fallen in the last 3 months. She does use a cane occasionally for ambulation. 6. The patient is not on any blood thinners, but does take medicine for hypertension. Opioid therapy is greater than six weeks; therefore, an opioid signed contract is on the chart. Risk assessment is low. Functional assessment is 37/70. 7. Recreational drug use, she denies. She is a current smoker of cigarettes about 10 a day and denies any alcohol use. According to the prescription monitoring system her morphine milliequivalent is 140 MME which is quite high, but she is followed very closely in our clinic and has been on higher levels in the past, which we have been able to decrease her. We will check a random drug screen on her at her next visit. PHYSICAL EXAMINATION: GENERAL: This is alert and orientated depressed and anxious, slightly obese 75-year-old female, rating her pain score today at 0, which is a great improvement from her last visit. She is a good historian. HEENT: Normocephalic, atraumatic. Extraocular eye muscles are intact. She is wearing a mask. NECK: Without adenopathy or JVD. MUSCULOSKELETAL: She is without significant scoliosis, kyphosis, or lordosis. She has orthotic shoes on bilaterally today with dressing that is clean, dry and intact on her right foot. Lower extremity strength is diminished. Utilizes a cane for ambulation. IMPRESSION: 1. Right foot pain with open lesion being treated by wound care. 2. Ongoing left ankle pain. 3. Depression and anxiety. 4. Complex medical management utilizing scheduled opioid medications. PLAN: 1. We discussed treatment options with the patient today. The patient feels that the current regimen of fentanyl 25 mcg every 48 hours and Dilaudid 4 mg up to 5 times a day, #150 is beneficial in controlling her pain. We will have Dr. Estuardo Matthews send these electronically for 3 months to her pharmacy in monthly intervals. The patient denies any daytime somnolence, overmedication feeling as well as constipation as a result of these medications. 2. The patient is upset today because she is going to start Trulicity for her A1c, it was 9 she reports. It was significantly increased from 6.9 only 4 months ago. The patient has recently moved into a facility that prepares her meals, so she reports going to stop eating any desserts and see if that may be beneficial and is hopeful to increase some of her activity as well. 3. The patient is very depressed today missing her and also the [facility] [address] [place] [address] PAIN MANAGEMENT CONSULTATION Name: EVELYNSANDRITA MENDEZ [facility] [id number] Admission: 03/19/21 Attend Phys: Valarie Oliva Discharge: Date of : 46 Report #: [id number] adjustments and moving into a new facility from her home. She is considering a move to [place] if after 6 months she is not happier at this facility. Time spent with the patient in consultation, reviewing pertinent recent studies and clinical notes and physician reports, physical examination and correlation of findings and medical documentation to determine possible treatment options, 16 minutes. Time spent in preparing for appointment and reviewing prescription monitoring system reports, reviewing previous records and proposed treatment options and reviewing current medications, 5 minutes. Time spent preparing and sending electronic prescriptions with collaborating physician, Dr. Estuardo Matthews, and documentation of visit and plan of treatment, 5 minutes. Total time spent 26 minutes. The patient will return in 3 months. HANNAH Spear/ANDRESSA <ELECTRONICALLY SIGNED> By: Valarie Oliva 03/20/21 0841 [id number] Valarie Oliva /nt
== END ==
LOC: PAIN 06:55
PROVIDERS: ATTEND Clinical Nurse Specialist Adult Health
DX: M25.871 Other specified joint disorders, right ankle and foot (principal); M25.572 Pain in left ankle and joints of left foot; F32.9 Major depressive disorder, single episode, unspecified; F41.9 Anxiety disorder, unspecified; Z79.891 Long term (current) use of opiate analgesic; Z79.899 Other long term (current) drug therapy

== ENCOUNTER → 2021-03-20 | Outpatient (CLI) | payer OTHER | LOC: HYPER | PROVIDERS: ATTEND Emergency Medicine Emergency Medical Services | DX: E11.621 Type 2 diabetes mellitus with foot ulcer (principal); L97.512 Non-pressure chronic ulcer of other part of right foot with fat layer exposed; L97.522 Non-pressure chronic ulcer of other part of left foot with fat layer exposed; L84 Corns and callosities; L30.9 Dermatitis, unspecified; E11.40 Type 2 diabetes mellitus with diabetic neuropathy, unspecified; E66.9 Obesity, unspecified; E78.5 Hyperlipidemia, unspecified; G89.4 Chronic pain syndrome; I10 Essential (primary) hypertension; J45.909 Unspecified asthma, uncomplicated; K21.9 Gastro-esophageal reflux disease without esophagitis; K22.70 Barrett's esophagus without dysplasia; M19.90 Unspecified osteoarthritis, unspecified site; F41.9 Anxiety disorder, unspecified; F32.9 Major depressive disorder, single episode, unspecified; F17.200 Nicotine dependence, unspecified, uncomplicated; Z79.84 Long term (current) use of oral hypoglycemic drugs; Z68.30 Body mass index [BMI] 30.0-30.9, adult ==

== ENCOUNTER → 2021-04-03 | Outpatient (CLI) | payer OTHER | LOC: HYPER 08:41 | PROVIDERS: ATTEND Emergency Medicine | DX: E11.621 Type 2 diabetes mellitus with foot ulcer (principal); L97.512 Non-pressure chronic ulcer of other part of right foot with fat layer exposed; L97.522 Non-pressure chronic ulcer of other part of left foot with fat layer exposed; L84 Corns and callosities; L30.9 Dermatitis, unspecified; E11.40 Type 2 diabetes mellitus with diabetic neuropathy, unspecified; E66.9 Obesity, unspecified; E78.5 Hyperlipidemia, unspecified; G89.4 Chronic pain syndrome; I10 Essential (primary) hypertension; J45.909 Unspecified asthma, uncomplicated; K21.9 Gastro-esophageal reflux disease without esophagitis; K22.70 Barrett's esophagus without dysplasia; M19.90 Unspecified osteoarthritis, unspecified site; F41.9 Anxiety disorder, unspecified; F32.9 Major depressive disorder, single episode, unspecified; F17.200 Nicotine dependence, unspecified, uncomplicated; Z79.84 Long term (current) use of oral hypoglycemic drugs; Z68.30 Body mass index [BMI] 30.0-30.9, adult ==

== ENCOUNTER → 2021-06-03 | Outpatient (CLI) | payer OTHER | LOC: HYPER 08:21 | PROVIDERS: ATTEND Emergency Medicine | DX: E11.621 Type 2 diabetes mellitus with foot ulcer (principal); L97.512 Non-pressure chronic ulcer of other part of right foot with fat layer exposed; L97.522 Non-pressure chronic ulcer of other part of left foot with fat layer exposed; L84 Corns and callosities; L30.9 Dermatitis, unspecified; E11.40 Type 2 diabetes mellitus with diabetic neuropathy, unspecified; E66.9 Obesity, unspecified; E78.5 Hyperlipidemia, unspecified; G89.4 Chronic pain syndrome; I10 Essential (primary) hypertension; J45.909 Unspecified asthma, uncomplicated; K21.9 Gastro-esophageal reflux disease without esophagitis; K22.70 Barrett's esophagus without dysplasia; M19.90 Unspecified osteoarthritis, unspecified site; F41.9 Anxiety disorder, unspecified; F32.9 Major depressive disorder, single episode, unspecified; F17.200 Nicotine dependence, unspecified, uncomplicated; Z79.84 Long term (current) use of oral hypoglycemic drugs; Z68.30 Body mass index [BMI] 30.0-30.9, adult ==

== ENCOUNTER → 2021-06-10 | Outpatient (CLI) | payer OTHER | LOC: HYPER 08:12 | PROVIDERS: ATTEND Emergency Medicine | DX: E11.621 Type 2 diabetes mellitus with foot ulcer (principal); L97.512 Non-pressure chronic ulcer of other part of right foot with fat layer exposed; L97.522 Non-pressure chronic ulcer of other part of left foot with fat layer exposed; L84 Corns and callosities; L30.9 Dermatitis, unspecified; E11.40 Type 2 diabetes mellitus with diabetic neuropathy, unspecified; E66.9 Obesity, unspecified; E78.5 Hyperlipidemia, unspecified; G89.4 Chronic pain syndrome; I10 Essential (primary) hypertension; J45.909 Unspecified asthma, uncomplicated; K21.9 Gastro-esophageal reflux disease without esophagitis; K22.70 Barrett's esophagus without dysplasia; M19.90 Unspecified osteoarthritis, unspecified site; F41.9 Anxiety disorder, unspecified; F32.9 Major depressive disorder, single episode, unspecified; F17.200 Nicotine dependence, unspecified, uncomplicated; Z79.84 Long term (current) use of oral hypoglycemic drugs; Z68.30 Body mass index [BMI] 30.0-30.9, adult ==

== ENCOUNTER → 2021-07-09 | Outpatient (CLI) | payer OTHER ==
[~2021-07-09] VITALS: Ht 172.7 cm; Wt 96.6 kg
[~2021-07-09] MED LIST changes: +KEFLEX250 MG PO; +PROTONIX40 M2 PO; +SUBOXONE 4 MG-1 EACH DISSOLVE; +SUBOXONE 8 MG-1 EAC3 SUBLING
[2021-07-09 10:12] VITALS: BP 138/67
--- NOTE | 2021-07-09 10:23 | NUR ---
Pain Clinic Assessment: 1. History of Osteoarthritis: RIGHT ANKLE LEFT ANKLE History of Rheumatoid Arthritis: Not Applicable 2. Height: 5 ft. 8 in. 172.7 cm. Weight: 213.0 lb. oz. 96.616 kg. Patient's BMI: 32.4 3. Vital Signs: BP: 138/67 Pulse: 95 Resp: 16 Temp: 02 Sat: 97 ECG Mon: 4. Pain Intensity: 3 5. Fall Risk: Dizziness: N Needs help standing or walking: N Fallen in the last 3 months: N Fall risk comments: 6. Patient on Blood Thinner: None 7. History of Hypertension: Y 8. Opioid Therapy greater than 6 weeks: Y Opiate Contract Signed: 03/30/16 9. Risk Assessment Tool Provided: LOW RISK 2 10. Functional Assessment Tool: 11. Recreational Drug Use: Never Drug Type: Tobacco Use: Former Smoker Tobacco Type: Amount or Packs/day: How Many Years: Alcohol Use: No Frequency: Quant:
== END ==
LOC: PAIN 07:06
PROVIDERS: ATTEND Anesthesiology Pain Medicine
DX: G89.29 Other chronic pain (principal); M79.671 Pain in right foot; M25.572 Pain in left ankle and joints of left foot; F32.89 Other specified depressive episodes; I10 Essential (primary) hypertension; Z88.8 Allergy status to other drugs, medicaments and biological substances; Z79.84 Long term (current) use of oral hypoglycemic drugs; Z79.899 Other long term (current) drug therapy; Z96.652 Presence of left artificial knee joint

== ENCOUNTER → 2021-07-18 | Outpatient (CLI) | payer OTHER ==
[~2021-07-18] VITALS: Ht 172.7 cm; Wt 99.8 kg
[2021-07-18 12:55] VITALS: BP 152/79
--- NOTE | 2021-07-18 13:07 | NUR ---
Pain Clinic Assessment: 1. History of Osteoarthritis: RIGHT ANKLE LEFT ANKLE History of Rheumatoid Arthritis: Not Applicable 2. Height: 5 ft. 8 in. 172.7 cm. Weight: 220.0 lb. oz. 99.792 kg. Patient's BMI: 33.5 3. Vital Signs: BP: 152/79 Pulse: 85 Resp: 16 Temp: 02 Sat: 96 ECG Mon: 4. Pain Intensity: 7 5. Fall Risk: Dizziness: Y Needs help standing or walking: Y Fallen in the last 3 months: N Fall risk comments: 6. Patient on Blood Thinner: None 7. History of Hypertension: Y 8. Opioid Therapy greater than 6 weeks: Y Opiate Contract Signed: 03/30/16 9. Risk Assessment Tool Provided: LOW RISK 2 10. Functional Assessment Tool: 11. Recreational Drug Use: Never Drug Type: Tobacco Use: Former Smoker Tobacco Type: Amount or Packs/day: How Many Years: Alcohol Use: No Frequency: Quant:
== END ==
LOC: PAIN 07:07
PROVIDERS: ATTEND Anesthesiology Pain Medicine
DX: G89.29 Other chronic pain (principal); M79.671 Pain in right foot; M25.572 Pain in left ankle and joints of left foot; Z88.8 Allergy status to other drugs, medicaments and biological substances; Z79.899 Other long term (current) drug therapy

== ENCOUNTER 2021-08-19 12:41 | Inpatient (IN) | payer OTHER ==
[~2021-08-19] VITALS: Ht 172.7 cm; Wt 89.8 kg
[2021-08-19 12:43] VITALS: BP 125/51
[2021-08-19 12:59] LABS: ABSOLUTE NEUTROPHILS 5.6 thou/uL (1.4-8.2); BASOPHILS 1.3 % (0.0-2.0); EOSINOPHILS 4.5 % (0.0-3.0); HEMATOCRIT 32.7 % (37.0-47.0); HEMOGLOBIN 10.8 gm/dL (12.0-15.0); LYMPHOCYTES 22.9 % (24.0-44.0); MCHC 33.1 g/dL (28.0-37.0); MCV 84.4 fL (80.0-100.0); MONOCYTES 9.4 % (1.0-8.0); PLATELET COUNT 288 thou/uL (150-400); POLYS 61.9 % (36.0-66.0); RBC 3.87 mil/uL (4.20-5.00); RDW 14.7 % (10.5-14.5)
[2021-08-19 13:11] LABS: CALCIUM 9.1 mg/dL (8.5-10.1); CREATININE 1.1 mg/dL (0.6-1.0)
[2021-08-19 13:25] LABS: ALBUMIN 3.6 g/dL (3.4-5.0); TOTAL BILIRUBIN 0.3 mg/dL (0.2-1.0); TOTAL PROTEIN 7.4 g/dL (6.4-8.2)
[2021-08-19 14:36] VITALS: BP 123/58
[2021-08-19 14:41] VITALS: BP 115/58
[2021-08-19] MEDS ORDERED: ALPRAZOLAM 0.50.5 M1 PO (14:43)
[2021-08-19 15:12] VITALS: BP 121/50
--- NOTE | 2021-08-19 17:14 | NUR ---
Pt transferred to unit from ED. Pt a&ox4. Pt arrives to unit and is tearful about many situations. Pt states she takes suboxone at home. Medicine will not be available in hospital's pharmacy until tomorrow. Pt tearful after learning this information. Dilaudid ordered by provider. Picture of rt foot wound taken and in chart. Admission completed. IVF and IV antibiotics infusing. Call light within reach. Will continue to monitor.
[2021-08-19 18:10] LABS: FOLIC ACID 11.8 ng/mL (8.6-58.9)
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
[2021-08-20 05:17] LABS: ABSOLUTE NEUTROPHILS 3.3 thou/uL (1.4-8.2); BASOPHILS 0.6 % (0.0-2.0); EOSINOPHILS 5.4 % (0.0-3.0); HEMATOCRIT 30.6 % (37.0-47.0); HEMOGLOBIN 10.2 gm/dL (12.0-15.0); LYMPHOCYTES 33.9 % (24.0-44.0); MCH 28.1 pg (26.0-34.0); MCHC 33.5 g/dL (28.0-37.0); MCV 84.1 fL (80.0-100.0); MONOCYTES 11.2 % (1.0-8.0); PLATELET COUNT 243 thou/uL (150-400); POLYS 48.9 % (36.0-66.0); RBC 3.64 mil/uL (4.20-5.00); RDW 14.7 % (10.5-14.5); WBC 6.7 thou/uL (4.0-11.0)
[2021-08-20 06:02] LABS: CALCIUM 8.5 mg/dL (8.5-10.1); CREATININE 0.9 mg/dL (0.6-1.0); POTASSIUM 3.5 mmol/L (3.5-5.1)
[2021-08-20 07:09] LABS: GLYCOHEMOGLOBIN (HGB A1C) 7.4 % (4.8-5.6)
[2021-08-20 07:24] VITALS: BP 105/68
--- NOTE | 2021-08-20 09:20 | NUR ---
76 year old female admitted through he ED on 08-19-21 at the request of wound care MD Dr. Baca for evaluation of osteomyelitis in the right foot. Patient s current PCP is Dr. Frank Mata. ID has seen patient and started on IV ABT s, MRI ordered and waiting culture results. The patient has admitted for nonhealing diabetic foot wound, renal disorder with anxiety and chronic pain and chronic opiate use. Per ED ID NOW listed as negative and noted to be vaccinated with [employer] retargeting. Step son Trae Karimi at [phone] is listed as next of kin. Currently patient lives alone. Per assessment the patient is listed as A&O x4 and is currently up with [facility]. CM will follow and await medical assessments and then therapy evaluations and will ask attending for therapy orders to be placed.
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
[2021-08-20 16:31] VITALS: BP 132/65
[2021-08-20 19:21] VITALS: BP 124/68
--- NOTE | 2021-08-20 23:07 | HC ---
[facility] [place] [address] [place] [address] CONSULTATION Name: SANDRITA RIVAS Room #: 441-P ADM IN M.R.#: [id number] Admission: 08/19/21 Attend Phys: Luis A Roach MD Discharge: Date of : 46 Report #: [id number] THIS REPORT FOR: cc: Bennie Stephens MD, Bruce H. MD Geha,Rosalio Cui MD ~ DATE OF SERVICE: 08/19/2021 INFECTIOUS DISEASE CONSULTATION NOTE REASON FOR CONSULTATION: I was asked to evaluate concerning right foot osteomyelitis. HISTORY OF PRESENT ILLNESS: The patient is a 76-year-old with underlying history of peripheral neuropathy, diabetes, hypertension and she has had a chronic nonhealing right lateral foot wound. This has been ongoing for several years. She was hospitalized several months ago at [facility] where cultures revealed methicillin-susceptible Staph aureus. Imaging studies failed to identify any osteomyelitis. She was discharged on a 4-week course of IV antibiotic therapy. Despite this, she failed to improve. She has been treated in the outpatient wound care center. MRI scan was obtained several days ago, which by report is showing osteomyelitis of the fifth metatarsal beneath this wound. She has had no fever, chills or sweats. She has pain associated with this region. No nausea, vomiting or diarrhea. REVIEW OF SYSTEMS: Anxiety has persisted. The patient has become very anxious about her medical condition. No cough or sputum production. No nausea, vomiting, diarrhea. No dysuria or frequency. No vaginal discharge. No other rashes. Cultures from 07/07/2021 revealed methicillin-susceptible Staph aureus from her wound. ALLERGIES: CODEINE, IODINE, PENTAZOCINE, SULFA. MEDICATIONS: As noted on her MAR, now on cefazolin. PAST MEDICAL HISTORY: Hypertension, hyperlipidemia, diabetes, chronic pain syndrome, degenerative joint disease. FAMILY HISTORY: Negative for tuberculosis. SOCIAL HISTORY: Past smoker, no significant alcohol intake. PHYSICAL EXAMINATION: GENERAL: Afebrile and hemodynamically stable. Alert, cooperative and pleasant, [facility] [address] [place] [address] CONSULTATION Name: SANDRITA RIVAS Room #: 441-P [facility] IN M.R.#: [id number] Admission: 08/19/21 Attend Phys: Luis A Roach MD Discharge: Date of : 46 Report #: [id number] although she was a bit anxious. SKIN: Without rash. No palpable adenopathy. HEENT: Eyes without scleral icterus. Mouth without mucositis. LUNGS: Clear. HEART: Regular, without murmur, gallop or rub. ABDOMEN: Soft and nontender with no hepatosplenomegaly or mass. EXTREMITIES: With wound over the right lateral fifth metatarsal head with abundant granulation tissue formation and a small area of fibrinous tissue at the mid portion of her wound. Mild surrounding erythema. No fluctuance. Minimal edema. Fifth toe with 1+ edema. Capillary refill within normal limits. Pulses are palpable in her foot. Sensation was diminished in her distal foot to fine touch. PSYCHIATRIC: Mood anxious. LABORATORY DATA: Pending. IMPRESSION: Nonhealing right lateral foot wound with growth of methicillin-susceptible Staph aureus in the past. MRI scan by report shows fifth metatarsal head osteomyelitis, although x-ray failed to show this. PLAN: Recommend to continue her IV antibiotic therapy. We will obtain MRI scan reports. Check inflammatory markers. Discussed with wound care service. If truly has osteomyelitis, the patient will require a ray amputation. <ELECTRONICALLY SIGNED> By: Rosalio Mata MD 08/20/21 [id number] [id number] Rosalio Mata MD /nt
--- NOTE | 2021-08-21 00:53 | NUR ---
ASSESSMENT COMPLETED.PT OSERVED TALKING ON THE PHONE WITH FAMILY? SHE SEEMED IMPATIENT AND UPSET, JUST IRRITABLE.PT GIVEN SCHEDULED SUBOXEN, AFTER WHICH SHE SEEMED CALM AND RELAXED. PT HAS QUESTIONS ABOUT MEDICATIONS. ALL QUESTIONS ANSWERED. DRSG TO RIGHT FOOT IS INTACT. IVF INFUSING. PT IS UP AD JENNIFER, VOIDING OKAY. SHE IS ON ROOM AIR.APPEARS TO BE SLEEPING AT THIS TIME. NO FURTHER CONCERNS.
[2021-08-21 04:37] VITALS: BP 124/53
[2021-08-21 08:22] VITALS: BP 149/68
--- NOTE | 2021-08-21 09:03 | NUR ---
[facility] HAS CHECKED BENEFITS FOR HOME INFUSION IF NEEDED: COPAY FOR CURRENT IV ATB WOULD BE $54 A WEEK AND SUPPLY CHARGE IS $30 A DAY FOR APPROX WEEKLY OUT OF POCKET OF $264. UNIT CM UPDATED. AWAITING ID RECOMMENDATIONS.
--- NOTE | 2021-08-21 13:43 | NUR ---
Assess due to to notification of pt with right diabetic foot wound, osteo. Hx: DM, HDL. Pt has been very irritable, anxious, depression. Psych consult pending and geriatricion [employer]END[employer] following. Upon attempted visit, pt anxious and in the restroom. A1C 7.4. On heart healthy diet and eating 70-80% of meals. Assess as low nutrition risk at this time. If blood glucose levels worsen, then add carb control to diet order
--- NOTE | 2021-08-21 14:37 | NUR ---
Discussed during los with the attending physician, checking on ABX plan. Pt eval to see if she will need to resume [facility]. New order Dr Olson consult.
--- NOTE | 2021-08-21 18:30 | NUR ---
PT ASSESSED AT START OF SHIFT. MEDS GIVEN FOR C/O PAIN. NOT HAPPY W/ CURRENT SUBOXONE SCHEDULE. AMBULATING STEADY. DSNGS DRY AND INTACT. AWAITING DR. HENRIQUEZ TO ROUND AND FIND OUT PLAN FOR DISCHARGE.
[2021-08-21 19:00] VITALS: BP 152/90
--- NOTE | 2021-08-22 04:54 | NUR ---
ASSUMED PT CARE AT 1900.PT WAS OBSERVED STANDING AT THE NURSES STATION REQUESTING FOR HER PAIN MED.PT WAS REDIRECTED BY AM NURSE BACK TO HER ROOM DURING DELICIA.PT'S NEEDS AND REQUEST MET SO FAR.NO COMPLAINTS NOTED.DR HENRIQUEZ ROUNDED ON PT AT HS.DRSG TO HER R FOOT CAHNGED.PT UP ADLIB IN HER ROOM.PT ABLE TO MAKE HER NEEDS KNOWN.CALL LIGHT WITHIN REACH.
[2021-08-22 05:53] VITALS: BP 121/56
[2021-08-22 07:02] VITALS: BP 139/61
[2021-08-22] MEDS ORDERED: KEFLEX750 MG PO (08:07)
[2021-08-22 08:14] VITALS: BP 139/61
--- NOTE | 2021-08-22 09:56 | NUR ---
Assumed care of pt at 0700. Pt a&ox4. Pt very anxious and tearful. Pt will discharge to home today and schedule for surgery at another hospital. Cab voucher provided for patient.
--- NOTE | 2021-08-22 10:19 | HC ---
[facility] [place] [address] CONSULTATION Name: SANDRITA RIVAS Room #: 441-P [facility] IN M.R.#: [id number] Admission: 08/19/21 Attend Phys: Luis A Roach MD Discharge: 08/22/21 Date of : 47 Report #: [id number] THIS REPORT FOR: cc: Bennie Stephens MD, Bruce H. MD Althoff, Jeffrey R. MD ~ DATE OF SERVICE: 08/20/2021 CHIEF COMPLAINT: Diabetic ulceration to the right foot. HISTORY OF PRESENT ILLNESS: This is a 76-year-old female patient with whom I am familiar as well as follows Dr. Ford in the clinic for a chronic diabetic ulceration of the right fifth MTP. She has had recent MRI that showed underlying early osteomyelitis. She presented to the Emergency Department for admission to the hospital. States that she is having some increased drainage. Denies significant pain associated with it. PAST MEDICAL HISTORY: Positive for hypertension, hyperlipidemia, diabetes mellitus. SOCIAL HISTORY: She is a former smoker. No alcohol use. FAMILY HISTORY: Noncontributory. MEDICATIONS: Includes alprazolam, estradiol, multivitamin, Norvasc, Lipitor, Neurontin, Cymbalta, vitamin B12, Zyrtec, Trulicity, Protonix. ALLERGIES: CODEINE, IODINATED CONTRAST, TALWIN, AND SULFA. REVIEW OF SYSTEMS: CONSTITUTIONAL: The patient denies fever, chills or weight loss. NEUROLOGICAL: The patient denies focal weakness, numbness, or tingling. EYES: The patient denies any visual changes, redness or drainage. ENT: The patient denies earache, nasal drainage, and sore throat. CARDIOVASCULAR: The patient denies chest pain, palpitations, diaphoresis. PULMONARY: The patient denies cough or shortness of breath. GASTROINTESTINAL: The patient denies nausea, vomiting, diarrhea or abdominal pain. ORTHOPEDIC: The patient has ulcerations of right lateral foot. Others systems in a 14-point review of systems are negative. PHYSICAL EXAMINATION: VITAL SIGNS: The patient's vital signs at this time include temperature 97.0, pulse 73, respiratory rate 14, blood pressure 130/58. GENERAL: This is a chronically ill-appearing female patient who appears to be [address] [address] CONSULTATION Name: SANDRITA RIVAS Room #: 441-P [facility] IN M.R.#: [id number] Admission: 08/19/21 Attend Phys: Luis A Roach MD Discharge: 08/22/21 Date of : 47 Report #: [id number] in minimal distress. HEENT: Head normocephalic. Nose and throat are clear. NECK: Supple. LUNGS: Clear. HEART: Regular. ABDOMEN: Soft. Bowel sounds present. EXTREMITIES: Lower extremities demonstrate palpable distal pulses and the feet are pink, warm, and dry. She has an ulceration overlying the right lateral fifth MTP. It is mostly covered with granulation tissue and about 10% of fibrinous material, but does not appear to be overtly infected, but there is some drainage and there is no swelling or redness to the periwound tissue. LABORATORY DATA: Laboratory studies include sodium 137, potassium 4.0, chloride 99, CO2 of 28, BUN 33, creatinine is 1.1 with a glucose of 152. C-reactive protein is 5.2, albumin is 3.6. Procalcitonin is less than 0.05. White blood cell count is 9.0 with a hemoglobin of 10.8, hematocrit of 32.7. X-ray evaluation of the foot demonstrates no bone destruction or periosteal reaction to suggest osteomyelitis. CLINICAL IMPRESSION: 1. Diabetic foot ulcer, Boogie grade III with possible early osteomyelitis based on prior MRI from outside facility. 2. Mild renal insufficiency. 3. Generalized anxiety disorder. 4. History of chronic pain with opioid use. 5. Type 2 diabetes mellitus. RECOMMENDATIONS: At this point in time, recommend topical Aquacel AG and Kerlix to be changed daily. We have discussed possible surgical intervention or having her seen by a surgeon, but she will only consider Dr. Pena as he has operated on her in the past. Unfortunately, he does not come to [facility] and visits [facility]. We will plan to contact him to develop a plan possibly on an outpatient basis. The patient would be considered for hyperbaric oxygen therapy under Boogie grade III diabetic ulceration indication. She has had a diabetic foot ulceration for greater than 30 days with appropriate debridement and management of antibiotic therapy. We have discussed with her that perhaps following any other surgical intervention that she would be an appropriate candidate. Discussed risks and benefits and this may be a consideration in the future. I do appreciate being asked to see her in consultation. <ELECTRONICALLY SIGNED> By: Harjit Park MD 08/22/21 [id number] Harjit Park MD /nt
--- NOTE | 2021-08-22 12:19 | NUR ---
ORDERS RECEIVED FOR P.T. EVAL AND TREAT. CHART REVIEWED. WHEN P.T. ARRIVED ON THE UNIT AT 0950, Pt HAD ALREADY BEEN D/C'D TO HOME. SO, UNABLE TO COMPLETE EVAL PRIOR TO D/C. NSG AWARE.
--- NOTE | 2021-08-22 16:51 | NUR ---
Faxed dc orders to [facility].
[2021-08-22 17:00] VITALS: BP 139/61
== END 2021-08-22 09:58 | disposition home health service (06) | DRG 638 ==
LOC: ER 12:41 → EROBS 14:12 → 4S 14:12
PROVIDERS: Nurse Practitioner; ADMIT Hospitalist; ATTEND Hospitalist
DX: E11.69 Type 2 diabetes mellitus with other specified complication (principal); M86.071 Acute hematogenous osteomyelitis, right ankle and foot; E11.621 Type 2 diabetes mellitus with foot ulcer; L97.519 Non-pressure chronic ulcer of other part of right foot with unspecified severity; N17.9 Acute kidney failure, unspecified; Z20.822 Contact with and (suspected) exposure to COVID-19; I10 Essential (primary) hypertension; G89.29 Other chronic pain; E78.5 Hyperlipidemia, unspecified; M19.90 Unspecified osteoarthritis, unspecified site; G47.00 Insomnia, unspecified; E11.40 Type 2 diabetes mellitus with diabetic neuropathy, unspecified; F41.1 Generalized anxiety disorder; Z66 Do not resuscitate; R53.81 Other malaise; F32.9 Major depressive disorder, single episode, unspecified; Z79.891 Long term (current) use of opiate analgesic; Z88.2 Allergy status to sulfonamides; Z88.8 Allergy status to other drugs, medicaments and biological substances; Z88.6 Allergy status to analgesic agent; Z91.041 Radiographic dye allergy status; Z87.891 Personal history of nicotine dependence
CPT/HCPCS: 10195

== ENCOUNTER → 2021-11-14 | Outpatient (CLI) | payer OTHER ==
[~2021-11-14] VITALS: Ht 172.7 cm; Wt 96.3 kg
[~2021-11-14] MED LIST changes: +ALPRAZOLAM 0.50.5 M1 PO; +AMITRIPTYLINE H10 M1 PO; +KEFLEX750 MG PO
[2021-11-14 13:24] VITALS: BP 125/57
--- NOTE | 2021-11-14 13:53 | NUR ---
Pain Clinic Assessment: 1. History of Osteoarthritis: RIGHT ANKLE LEFT ANKLE History of Rheumatoid Arthritis: Not Applicable 2. Height: 5 ft. 8 in. 172.7 cm. Weight: 212.2 lb. oz. 96.253 kg. Patient's BMI: 32.3 3. Vital Signs: BP: 125/57 Pulse: 85 Resp: 16 Temp: 02 Sat: 95 ECG Mon: 4. Pain Intensity: 7 5. Fall Risk: Dizziness: Y Needs help standing or walking: Y Fallen in the last 3 months: Y Fall risk comments: 6. Patient on Blood Thinner: None 7. History of Hypertension: Y 8. Opioid Therapy greater than 6 weeks: Y Opiate Contract Signed: 03/30/16 9. Risk Assessment Tool Provided: LOW RISK 2 10. Functional Assessment Tool: 11. Recreational Drug Use: Never Drug Type: Tobacco Use: Former Smoker Tobacco Type: Amount or Packs/day: How Many Years: Alcohol Use: No Frequency: Quant:
== END ==
LOC: PAIN 11:06
PROVIDERS: ATTEND Anesthesiology Pain Medicine
DX: G89.29 Other chronic pain (principal); I10 Essential (primary) hypertension; E78.5 Hyperlipidemia, unspecified; F32.A Depression, unspecified; M19.072 Primary osteoarthritis, left ankle and foot; M19.071 Primary osteoarthritis, right ankle and foot; Z88.8 Allergy status to other drugs, medicaments and biological substances; Z88.2 Allergy status to sulfonamides; Z87.891 Personal history of nicotine dependence